=== PATIENT | female | born 1930 | race Caucasian/White ===

== ENCOUNTER 2016-12-22 20:32 | Inpatient (IN) | payer MEDICARE, BC ==
[~2016-12-22] VITALS: Ht 167.6 cm; Wt 74.8 kg
[~2016-12-22 20:32] MED LIST: BAYER CHEWABLE81 MG PO; COZAAR100 MG PO; DUONEB 2.5-0.5 M3 ML UPD; ERYTHROMYCIN250 M1 PO; FLAGYL500 MG PO; GAS-X80 MG PO; HYDROCHLOROTHIA25 MG PO; K-DUR20 MEQ PO; LASIX40 MG PO; LEXAPRO10 MG PO; LOPRESSOR50 MG PO; MUCINEX600 MG PO; NORCO 10/325 TA1 TA1 PO; POTASSIUM99 M1 PO; PREDNISONE20 MG PO; ZITHROMAX250 MG PO
[2016-12-22 22:14] LABS: BASOPHILS 0.5 % (0.0-2.0); EOSINOPHILS 2.6 % (0-7); HEMATOCRIT 37.7 % (36.0-48.0); HEMOGLOBIN 12.2 g/dL (12-16); IMMATURE GRANULOCYTES 0.1 % (0-5); LYMPHOCYTES 11.2 % (15-50); MCH 28.7 pg (26.0-34.0); MCHC 32.4 g/dL (31.0-37.0); MCV 88.7 fL (80.0-100.0); MEAN PLATELET VOLUME 10.9 fL (7.4-10.4); MONOCYTES 10.8 % (2-11); NEUTROPHILS 74.8 % (40-80); PLATELET COUNT 201 10x3/uL (130-400); RBC 4.25 10x6/uL (4.00-5.40); RDW 14.1 % (11.5-14.5); WBC 8.1 10x3/uL (4.8-10.8)
[2016-12-22 22:32] LABS: ALBUMIN 3.7 g/dL (3.4-5.0); ANION GAP 11.6 mmol/L (8-16); BILIRUBIN - TOTAL 0.33 mg/dL (0.2-1.3); CALCIUM 8.3 mg/dL (8.5-10.1); CARBON DIOXIDE 27.5 mmol/L (21.0-32.0); CREATININE - SERUM 2.1 mg/dL (0.6-1.3); POTASSIUM - SERUM 4.1 mmol/L (3.5-5.1); PROTEIN - SERUM 7.3 g/dL (6.4-8.2)
[2016-12-22 22:34] LABS: APPEARANCE TURBID (CLEAR); BACTERIA MANY /hpf (NONE SEEN); BILIRUBIN NEGATIVE (NEGATIVE); COLOR YELLOW (YELLOW); EPITHELIAL CELLS 0-5 /hpf (0-5); GLUCOSE NEGATIVE (NEGATIVE); KETONE NEGATIVE (NEGATIVE); LEUKOCYTE ESTERASE 2+ (NEGATIVE); NITRITE NEGATIVE (NEGATIVE); PROTEIN 2+ mg/dL (NEGATIVE); RED CELLS - URINE 25-50 /hpf (0-5); UROBILINOGEN NORMAL (NORMAL); WHITE CELLS - URINE >50 /hpf (0-5)
[2016-12-23 01:19] LABS: TROPONIN-I 0.033 ng/mL (0.000-0.060)
--- NOTE | 2016-12-23 01:59 | NUR ---
RECEIVED TO ROOM 213 ALERT AND ORIENTED 86 Y/O FEMALE SEEN BY DR HUERTA WITH A DX OF KIDNEY STONES VIA STRETCHER FROM ER. ASSIST OVER TO BED W/O DIFF. ORIENTATION TO UNIT ROOM BED, BATHROOM, C/L, TV, GIVEN WITH UNDERSTANDING VERBALIZED. HOB UP SR UP X2, C/L IN REACH,, FIELD OPERATOR DILAUDID PER ORDERS, WHITNEY WELL. CONTINUE TO MONITOR. NPO
[2016-12-23 04:00] VITALS: BP 213/93
[2016-12-23 05:01] VITALS: BP 213/93; BMI 26.7
--- NOTE | 2016-12-23 07:58 | NUR ---
HELPED PT WITH TOILETING. DENIES OTHER NEEDS WILL CONT TO MONITOR.
[2016-12-23 08:32] VITALS: BP 179/76
[2016-12-23 12:35] VITALS: BP 106/67
--- NOTE | 2016-12-23 12:46 | NUR ---
PT ANCEF AND DILAUDID STARS ANALYTICAL LEAD ARENT COMPATIBLE. TRIED TO SITE PT ANOTHER PIV. X5 STICKS, NO SUCCESS. CALLED ANTONELLA VASCULAR ACCESS NURSE TO COME TRY, ON HER WAY
--- NOTE | 2016-12-23 13:01 | NUR ---
IV ACCESS-22 GAUGE INSERTED IN LEFT HAND FOR ACCESS ANTONELLA TONEY RN
--- NOTE | 2016-12-23 13:11 | NUR ---
ANTONELLA WAS ABLE TO GET IV ACCESS. STARTED IV ABX TO LEFT HAND NEW IV SITE. DILAUDID SALES MERCHANDISING SPECIALIST AND FLUIDS GOING TO R AC. PT GOING FOR CYSTOSCOPY THIS EVENING PER DR LOMELI. CONSENTS ARE SIGNED AND ON THE CHART. PT CALLED DAUGHTER WHILE I WAS IN THE ROOM AND TOLD HER SHE WAS GOING TO SURGERY. WILL CONT TO MONITOR
[2016-12-23 13:46] VITALS: Ht 167.6 cm; Wt 74.8 kg
[2016-12-23 15:55] VITALS: BP 127/76
--- NOTE | 2016-12-23 18:17 | NUR ---
SURGERY CALLED TO PREOP PT EARLIER. PT PREOPED AND READY TO GO. PT DENIES NEEDS AT THIS TIME.
--- NOTE | 2016-12-23 20:40 | NUR ---
BACK FROM SURGERY VIA BED, ALERT, ORIENTED VOICES NO C/O PAIN OR DISCOMFORT AT THIS TIME. HOB UP, SR UP X2, C/L IN REACH. VSS.
[2016-12-23 21:37] VITALS: BP 162/60
--- NOTE | 2016-12-24 03:17 | NUR ---
EYES CLOSED, RESP UNL AT THIS TIME.DOES HAVE BOX ALARM ATTACHED AND WORKING CHECKING FREQ. FOR NEEDS. NO S/S OF ACUTE DISTRESS NOTED AT THIS TIME. C/L IN REACH. CONTINUE TO MONITOR.
[2016-12-24 05:37] LABS: BASOPHILS 0.5 % (0.0-2.0); EOSINOPHILS 0.6 % (0-7); HEMATOCRIT 35.2 % (36.0-48.0); IMMATURE GRANULOCYTES 0.5 % (0-5); LYMPHOCYTES 7.7 % (15-50); MCH 28.9 pg (26.0-34.0); MCHC 31.3 g/dL (31.0-37.0); MEAN PLATELET VOLUME 10.8 fL (7.4-10.4); MONOCYTES 7.4 % (2-11); NEUTROPHILS 83.3 % (40-80); PLATELET COUNT 173 10x3/uL (130-400); RBC 3.81 10x6/uL (4.00-5.40); RDW 14.8 % (11.5-14.5); WBC 8.8 10x3/uL (4.8-10.8)
[2016-12-24 05:41] LABS: MCV 92.4 fL (80.0-100.0)
[2016-12-24 05:54] VITALS: BP 171/71
[2016-12-24 06:01] LABS: ALBUMIN 3.2 g/dL (3.4-5.0); ANION GAP 10.6 mmol/L (8-16); BILIRUBIN - TOTAL 0.4 mg/dL (0.2-1.3); CALCIUM 8.2 mg/dL (8.5-10.1); CARBON DIOXIDE 24.8 mmol/L (21.0-32.0); CREATININE - SERUM 1.9 mg/dL (0.6-1.3); POTASSIUM - SERUM 4.4 mmol/L (3.5-5.1); PROTEIN - SERUM 6.4 g/dL (6.4-8.2)
[2016-12-24 06:02] VITALS: BP 166/78
--- NOTE | 2016-12-24 07:20 | NUR ---
PT SITTING UP IN BED SLEEPING ARROUSES EASILY. NO S/S DISTRESS NOTED WILL CONT TO MONITOR.
[2016-12-24 08:00] VITALS: BP 183/67
[2016-12-24 12:00] VITALS: BP 180/80
--- NOTE | 2016-12-24 15:18 | OP ---
PATIENT NAME: FIDE TORRES MEDICAL RECORD: [id number] :32 LOCATION:D.M2 D.2133 ADMISSION DATE:12/23/16 SURGEON: KOTA LOMELI MD DATE OF OPERATION: 12/23/2016 SURGEON: Kota Lomeli MD. ANESTHESIA: MAC by Dr. Umanzor. PREOPERATIVE DIAGNOSES: Bilateral hydronephrosis, urinary tract infection, infected ureteral stents times 3. 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 PROCEDURES: Cystoscopy, bilateral ureteral stent removal. Two stents were removed from the left kidney, one stent from the right. Retrograde pyelogram on the right side. Right ureteral stent insertion, 5-Danish 24 cm without string attached. Specimen ureteral stents times 3. ESTIMATED BLOOD LOSS: None. CLINICAL HISTORY: This is an 86-year-old female, who was admitted for flank pain. She is not a very good historian. She does not remember ever having had ureteral stents inserted and for what indication they may have been inserted. She comes with an acute renal failure with a creatinine of 2.0. CT scan shows three ureteral stents in good position. There was a very atrophic left kidney with two ureteral stents in there due to a duplicated ureters. On the right side, there is one ureteral stent in good position, but the right kidney has hydroureteronephrosis down to about the mid ureteral level. Her urine shows signs of urinary tract infection. Urine culture has been sent. I started her empirically on Ancef 1 gram IV q.12 hours. The dosing is based on her elevated creatinine level. She will need to get these old and infected and obstructed ureteral stents removed. On the left side, I am not going to replace anything as the left kidney was basically . On the right side, which seems to be her solitary functioning kidney, we will replace the right ureteral stent. Due to the expected brevity of this case, we used MAC. Since the patient has already been given IV Ancef on the floor, we did not need to give her any further antibiotics here in the OR. DESCRIPTION OF PROCEDURE: The patient was given IV sedation. She was then placed in dorsal lithotomy position and prepped and draped. Preoperative fluoroscopy revealed the [address] The ureteral stent on the left side did crossover as expected, so that the upper moiety of the left kidney had the stent opening out on to the lower ureteral orifice on the left side. The lower moiety of the left kidney opens up on the upper ureteral orifice on the left side. This is consistent with a Weigert-Yang law. We placed a 21-Danish cystoscope. The stents were identified. I pulled out the stent from the left lower ureteral orifice first. Fluoroscopy was done while this was being performed and this confirmed that the stent was coming out of the left upper pole moiety of the kidney. The stent was entirely removed. Then, the stent coming out of the upper ureteral orifice was removed and this under fluoroscopy, revealed that it was coming out of the lower moiety of the left kidney. Then, the stent from the right side was removed entirely. All 3 stents were taken at the end of the case and sent to pathology for identification only. OPERATIVE REPORT [id number] FIDE TORRES A 5-Danish open-ended ureteral catheter was then placed into the right ureteral orifice. Retrograde pyelogram was performed. The distal ureter is of normal caliber. At about the L3-L4 interspace ____ incredibly to quite prominent hydroureteronephrosis with tortuosity of the proximal ureter. They placed our sensor wire through the lumen of the open-ended ureteral catheter and guided into the renal pelvis. We then removed the open-ended ureteral catheter and left the guidewire in place. Over the wire, we inserted the 5-Danish x 24 cm ureteral stent. Once the stent was in correct position, we slowly withdrew the wire to allow the proximal end to coil within the renal pelvis. The wire was then entirely removed. The distal end was pushed into the bladder using a pusher. The bladder was then emptied through the cystoscope. The patient was brought to the recovery room. TRANSINT:[id number] Voice Confirmation ID: [id number] DOCUMENT ID: [id number] KOTA LOMELI MD at 1518 CC: [id number] DICTATION DATE: 12/23/161946 IMPORT COORDINATOR: 12/24/166 [facility] IN [facility] [address] [id number]
[2016-12-24 16:00] VITALS: BP 192/81
--- NOTE | 2016-12-24 16:55 | NUR ---
DC PT DILAUDID MOUNTER PER DR HUERTA ORDER. EXPLAINED TO PT. TOLD PT SHE HAS ORAL PAIN MEDS IF NEEDED PT VERBALIZES UNDERSTANDING.
--- NOTE | 2016-12-24 18:27 | NUR ---
PT SITTING UP IN BED TALKING ON THE PHONE DENIES NEEDS WILL CONT TO MONITOR
[2016-12-24 20:00] VITALS: BP 152/61
--- NOTE | 2016-12-24 20:09 | NUR ---
PT RESTING IN BED, ASSISTED UP TO USE BEDSIDE COMMODE, THEN BACK TO BED WITH NO RESULTS. SALINE LOCK TO LEFT HAND. NS @ 100 TO RIGHT A/C. O2 @ 2L/NC WITH SLIGHT SOB AFTER EXERTING HERSELF. BED ALARM IN PLACE. CPOC.
[2016-12-25] VITALS: BP 194/73
[2016-12-25 04:00] VITALS: BP 211/81
--- NOTE | 2016-12-25 04:05 | NUR ---
SHIFT SUMMARY: PT STARTED SHIFT BEING VERY RESISTANT TO CALLING FOR ASSISTANCE AND WOULD BE FOUND OUT OF BED/NAKED WITH BOX BED ALARM STILL ON THE BED AND CONNECTED TO THE GOWN SHE HAD REMOVED. STAFF ORIENTED PT TO SAFETY AND TRIED MULTIPLE TIMES TO GET HER TO USE HER CALL LIGHT. SHE WOULD SOMETIMES COME ACROSS CONFUSED, SAYING SHE HAD USED HER CALL LIGHT AND INDICATING HER PHONE. DECISION MADE TO ALSO PLACE PT ON A BED ALARM MAT. SHE HAS BEEN CAUGHT SEVERAL TIMES GETTING UP TO VOID BY THE ALARM GOING OFF. PT MANAGED TO PULL OUT ONE IV IN HER LEFT HAND ON ONE OF HER TIMES GETTING UP AND DECISION WAS MADE TO LEAVE IVF OFF SINCE PT WAS CONTINUING TO GET UP AND DID NOT WANT TO LOSE REMAINING IV IN PT'S RIGHT A/C. AFTER REDIRECTING PT FOR HOURS, SHE FINALLY SLEPT FOR A SHORT WHILE AND WAS ABLE TO HANG HER SCHEDULED ABT. AFTER IV ABT COMPLETED, PT WAS BACK UP, SETTING OFF BED ALARMS X 2 AND TRYING TO GO TO BATHROOM UNASSISTED. SALINE LOCKED IV AGAIN TO KEEP HER FROM PULLING IT OUT. PT IS NOW RESTING IN BED. SHE DOES TURN OVER FREQUENTLY AND SET OFF ALARM MAT, BUT HAS BEEN IN THE BED WHEN STAFF ARRIVE IN ROOM AND WILL TELL STAFF "I JUST TURNED OVER, THAT IS ALL". CONTINUE TO MONITOR, FALL PRECAUTIONS REMAIN IN PLACE. PT HAS BEEN VOIDING FREQUENT, SMALL AMOUNTS THAT ARE MORE YELLOW NOW THAN BEGINNING OF SHIFT WHEN HER URINE HAD SOME SMALL AMOUNTS OF OLD BLOOD/BROWN COLOR IN IT.
[2016-12-25 05:58] LABS: BASOPHILS 0.4 % (0.0-2.0); EOSINOPHILS 0.6 % (0-7); HEMATOCRIT 34.5 % (36.0-48.0); HEMOGLOBIN 10.7 g/dL (12-16); IMMATURE GRANULOCYTES 0.3 % (0-5); MCH 28.3 pg (26.0-34.0); MCV 91.3 fL (80.0-100.0); MEAN PLATELET VOLUME 11.2 fL (7.4-10.4); MONOCYTES 10.3 % (2-11); NEUTROPHILS 82.4 % (40-80); PLATELET COUNT 175 10x3/uL (130-400); RBC 3.78 10x6/uL (4.00-5.40); RDW 14.6 % (11.5-14.5); WBC 9.4 10x3/uL (4.8-10.8)
[2016-12-25 06:17] LABS: ALBUMIN 3.1 g/dL (3.4-5.0); BILIRUBIN - TOTAL 0.6 mg/dL (0.2-1.3); CALCIUM 8.2 mg/dL (8.5-10.1); CARBON DIOXIDE 21.1 mmol/L (21.0-32.0); CREATININE - SERUM 1.8 mg/dL (0.6-1.3); POTASSIUM - SERUM 4.1 mmol/L (3.5-5.1); PROTEIN - SERUM 6.3 g/dL (6.4-8.2)
[2016-12-25 08:00] VITALS: BP 201/74
[2016-12-25 12:00] VITALS: BP 194/75
[2016-12-25 16:09] VITALS: BP 191/86
[2016-12-25 17:33] LABS: APPEARANCE CLEAR (CLEAR); BILIRUBIN NEGATIVE (NEGATIVE); COLOR YELLOW (YELLOW); GLUCOSE NEGATIVE (NEGATIVE); KETONE SMALL mg/dL (NEGATIVE); LEUKOCYTE ESTERASE 1+ (NEGATIVE); NITRITE NEGATIVE (NEGATIVE); PROTEIN 1+ mg/dL (NEGATIVE); SPECIFIC GRAVITY 1.015 (1.005-1.020); UROBILINOGEN NORMAL (NORMAL)
[2016-12-25 17:35] LABS: EPITHELIAL CELLS 0-5 /hpf (0-5); RED CELLS - URINE 0-5 /hpf (0-5)
[2016-12-25 17:38] LABS: BACTERIA FEW /hpf (NONE SEEN)
[2016-12-25 20:00] VITALS: BP 179/73
--- NOTE | 2016-12-25 20:45 | NUR ---
PT HAS BEEN RESTING IN BED WITH EYES CLOSED. ROUSES TO CALLING OF HER NAME. ASSISTED UP TO WHEELCHAIR TO GO TO RADIOLOGY FOR CT OF HEAD.
--- NOTE | 2016-12-25 21:00 | NUR ---
RETURNED FROM CT AND BACK TO BED. ALARM MAT IN PLACE, WELL ALARM BED. PT BACK TO SLEEP.
--- NOTE | 2016-12-25 23:30 | NUR ---
IVF NS @ 100ML/HR INFUSING TO RIGHT A/C. PT SAT UP ON SIDE OF BED, ALARM WENT OFF AND PT ACTUALLY STAYED ON SIDE OF BED UNTIL STAFF CAME AND ASSISTED HER TO BATHROOM. SHE VOIDED. URINE IS YELLOW. ASSISTED BACK TO BED. WEARING DEPENDS. OFFERED PT PAIN MED AND SHE TOOK A NORCO TO HELP HER REST AND FOR PAIN SHE HAS BEEN HAVING IN HER ABDOMEN. FALL PRECAUTIONS IN PLACE. ABLE TO BE SEEN FROM NURSES STATION.
[2016-12-26] VITALS: BP 137/69
--- NOTE | 2016-12-26 02:59 | NUR ---
IV TO RIGHT A/C LEAKING. REMOVED. DIP BRAZIER IN ROOM AND PROVIDING BATH TO PT. WILL RESITE IV WHEN BATH/ADLS ARE COMPLETED.
--- NOTE | 2016-12-26 05:05 | NUR ---
RESITED 22G TO RFA BY FEDERICO DAVENPORT. IVF CONTINUED.
[2016-12-26 06:55] LABS: BASOPHILS 0.4 % (0.0-2.0); EOSINOPHILS 0.5 % (0-7); HEMATOCRIT 33.3 % (36.0-48.0); HEMOGLOBIN 10.5 g/dL (12-16); IMMATURE GRANULOCYTES 0.4 % (0-5); LYMPHOCYTES 4.2 % (15-50); MCH 28.7 pg (26.0-34.0); MCHC 31.5 g/dL (31.0-37.0); MONOCYTES 10.4 % (2-11); NEUTROPHILS 84.1 % (40-80); PLATELET COUNT 160 10x3/uL (130-400); RBC 3.66 10x6/uL (4.00-5.40); RDW 14.7 % (11.5-14.5); WBC 9.3 10x3/uL (4.8-10.8)
[2016-12-26 07:39] LABS: ALBUMIN 3.2 g/dL (3.4-5.0); ANION GAP 16.1 mmol/L (8-16); BILIRUBIN - TOTAL 0.47 mg/dL (0.2-1.3); CALCIUM 7.8 mg/dL (8.5-10.1); CREATININE - SERUM 1.7 mg/dL (0.6-1.3); POTASSIUM - SERUM 4.1 mmol/L (3.5-5.1); PROTEIN - SERUM 6.1 g/dL (6.4-8.2)
[2016-12-26 09:09] VITALS: BP 187/98
--- NOTE | 2016-12-26 09:27 | NUR ---
MORNING MEDICATIONS PASSED. PT STILL CONFUSED BUT PLEASANTLY AND REORIENTS WELL. PT SITTING UP IN BED EATING BREAKFAST. NS INFUSING @100ML/HR VIA R.WRIST PIV ACCESS. DRSG CDI AND SWAB CAPS IN USE. PT HAS NC @3L IN PLACE AND BREATHING WITH RR SLIGHTLY LABORED. PT DENIES ANY CURRENT PAIN OR NEEDS. CL IN REACH, BED IN LOWEST, SIDE RAILS X2. WILL CPOC.
[2016-12-26 12:29] VITALS: BP 152/52
--- NOTE | 2016-12-26 13:21 | NUR ---
Nutrition Follow Up: Chart reviewed. Pt with confusion at this time. Pt is eating 22% meal avg on a diabetic diet. No BM since admit. Labs noted. Meds noted including NS @ 100 ml/hr, Humulin. Pt with poor po intake at this time. Will change diet to regular to encourage po intake. RD following.
--- NOTE | 2016-12-26 16:07 | NUR ---
* Is the patient Alert and Oriented? Yes 0 * How many steps to enter\exit or inside your home? 2 0 * PCP Dr. Vides 0 * Pharmacy [facility] 0 * Preadmission Environment Home with Family 0 * ADLs Independent 0 * Equipment Nebulizer Oxygen 0 * List name and contact numbers for known caregivers / representatives who currently or will assist patient after discharge: Minh Gould [phone] Daughter Beto Broderick [phone] * Additional services required to return to the preadmission environment? No 0 * Can the patient safely return to the preadmission environment? Yes 0 * Has this patient been hospitalized within the prior 30 days at any hospital? No 12/26/2016 16:07 DCP: Discharge Planning Patient Name: FIDE TORRES Admission Status: ER Accout number: [id number] Admission Date: 12-23-2016 : 1932 Admission Diagnosis:UNSPECIFIED HYDRONEPHROSIS Attending: XIN Current LOS: 3 Anticipated DC Date: 12-27-2016 Planned Disposition: Home Primary Insurance: MEDICARE A & B Discharge Planning Comments: CM met with patient to assess dc plans/needs. Patient states she lives alone, but her son & daughter in law live in a travel trailer in her yard. She states she is independent with all ADL's & IADL's, but family is available to help with any needs. She is currently on home O2 @ 2L & uses a nebulizer regularly. She states she has had home health in the past but unable to recall which agency. At dc, she will return home. Offered home health services - she is not interested at this time. CM will follow. Inventory Associate: Lynda Mary
[2016-12-26 20:00] VITALS: BP 191/75
[2016-12-27] VITALS: BP 181/78
[2016-12-27 04:46] LABS: BASOPHILS 0.2 % (0.0-2.0); EOSINOPHILS 0 % (0-7); HEMOGLOBIN 9.9 g/dL (12-16); IMMATURE GRANULOCYTES 0.6 % (0-5); LYMPHOCYTES 1.8 % (15-50); MCHC 31.9 g/dL (31.0-37.0); MCV 90.9 fL (80.0-100.0); MEAN PLATELET VOLUME 10.9 fL (7.4-10.4); MONOCYTES 3.4 % (2-11); PLATELET COUNT 155 10x3/uL (130-400); RBC 3.41 10x6/uL (4.00-5.40); RDW 14.7 % (11.5-14.5); WBC 8.5 10x3/uL (4.8-10.8)
[2016-12-27 04:56] LABS: ALBUMIN 2.9 g/dL (3.4-5.0); ANION GAP 14.8 mmol/L (8-16); BILIRUBIN - TOTAL 0.37 mg/dL (0.2-1.3); CALCIUM 7.6 mg/dL (8.5-10.1); CARBON DIOXIDE 19.7 mmol/L (21.0-32.0); CREATININE - SERUM 1.8 mg/dL (0.6-1.3); POTASSIUM - SERUM 3.5 mmol/L (3.5-5.1); PROTEIN - SERUM 6.3 g/dL (6.4-8.2)
[2016-12-27 08:25] VITALS: BP 176/85
[2016-12-27 12:28] VITALS: BP 152/90
[2016-12-27 15:01] VITALS: BP 178/71
[2016-12-27 19:00] VITALS: BP 194/81
--- NOTE | 2016-12-27 19:45 | NUR ---
PT AWAKE, ALERT, ORIENTED, SITTING ON SIDE OF BED. PT DENIES ANY ACUTE NEEDS AT THIS TIME. WILL MONITOR CLOSELY.
[2016-12-28] VITALS: BP 167/76
[2016-12-28 04:00] VITALS: BP 157/77
--- NOTE | 2016-12-28 05:52 | NUR ---
PT LYING IN BED, EYES CLOSED, RESPIRATIONS EVEN AND UNLABORED. PT EASILY ROUSABLE TO VERBAL STIMULI. CONTINUE TO MONITOR CLOSELY.
[2016-12-28 06:14] LABS: BASOPHILS 0 % (0.0-2.0); EOSINOPHILS 0 % (0-7); HEMATOCRIT 31.2 % (36.0-48.0); HEMOGLOBIN 9.9 g/dL (12-16); IMMATURE GRANULOCYTES 0.8 % (0-5); LYMPHOCYTES 1.6 % (15-50); MCH 28.8 pg (26.0-34.0); MCHC 31.7 g/dL (31.0-37.0); MCV 90.7 fL (80.0-100.0); MEAN PLATELET VOLUME 10.9 fL (7.4-10.4); MONOCYTES 5.5 % (2-11); NEUTROPHILS 92.1 % (40-80); PLATELET COUNT 181 10x3/uL (130-400); RBC 3.44 10x6/uL (4.00-5.40); RDW 14.7 % (11.5-14.5)
[2016-12-28 06:44] LABS: ALBUMIN 2.8 g/dL (3.4-5.0); ANION GAP 15.5 mmol/L (8-16); BILIRUBIN - TOTAL 0.3 mg/dL (0.2-1.3); CALCIUM 7.8 mg/dL (8.5-10.1); CARBON DIOXIDE 19.9 mmol/L (21.0-32.0); CREATININE - SERUM 1.7 mg/dL (0.6-1.3); POTASSIUM - SERUM 3.4 mmol/L (3.5-5.1)
--- NOTE | 2016-12-28 07:00 | NUR ---
RECEIVED REPORT. ASSUMED CARE OF PATIENT. CALL LIGHT WITHIN REACH. COMPLETING NEBULIZER DURING REPORT. RESP EVEN AND UNLAOBRED. NO DISTRESS.
[2016-12-28 08:26] VITALS: BP 187/82
[2016-12-28] MEDS ORDERED: NORVASC10 MG PO (10:07)
--- NOTE | 2016-12-28 11:12 | NUR ---
DC ORDER RECEIVED WITH HOME HEALTH ORDER. Cm met with alexane to discuss HH order. KITA discussed, patient stated she has had HH in the past but cant remember who with. KITA given with list of agencies. She did not have a preference. Cm will fax referral to [facility]. Patient signed [facility] form for [facility]. Pateint stated she has O2 and nebulizer at home. She deneid further dc needs. Barby Romo RN, [facility] [phone]
--- NOTE | 2016-12-28 11:23 | NUR ---
RESTING IN BED NO DISTRESS. ELOISA, CASE MANAGEMENT WILL HELP SET UP [facility] FOR PATIENT. PATIENT DENIES NEEDS AT THIS TIME.
[2016-12-28] MEDS ORDERED: PREDNISONE10 MG PO (11:54)
--- NOTE | 2016-12-28 12:24 | NUR ---
LISHA spoke to ROSTR/ [employer] [facility] and faxed referral to [phone]. Narendra to admit patient on Friday or Friday. Barby Romo RN, [facility] [phone]
--- NOTE | 2016-12-28 14:20 | NUR ---
22 GAUGE IV REMOVED FROM RIGHT WRIST. PATIENT IS DISCHARGING TO HOME. CATHETER TIP INTACT. NO BLEEDING FROM SITE. 2X2 GAUZE APPLIED AND SECURED WITH TAPE. NO DISTRESS. PATIENT COMPLAINS OF BEING SLEEPY. STATES SHE ATE A HUGE LUNCH, TOO MUCH, AND NOW SHE JUST WANTS TO REST. ENCOURAGED PATIENT TO REST WHILE SHE CAN. NO DISTRESS. CALL LIGHT WITHIN REACH.
--- NOTE | 2016-12-28 14:26 | NUR ---
FSBS 140. NO INSULIN PROVIDED PER SLIDING SCALE.
--- NOTE | 2016-12-28 17:05 | NUR ---
1645 FAMILY AT BEDSIDE. DISCHARGE INSTRUCTIONS PROVIDED TO PATIENT AND FAMILY. VERBALIZED ALL INSTRUCTIONS PROVIDED. 1655 PATIENT LEFT UNIT VIA WHEELCHAIR WITH ALL PERSONAL BELONGINGS. PATIENT DISCHARGE TO HOME WITH FAMILY. NO DISTRESS UPON LEAVING UNIT.
== END 2016-12-28 17:00 | disposition home health service (06) | DRG 699 ==
LOC: D.ER 20:32 → OBSVTIME 12-23 01:02 → D.M2 12-23 01:02
PROVIDERS: Surgery; Urology; ADMIT Family Medicine
PROC: BT141ZZ Fluoroscopy of Kidneys, Ureters and Bladder using Low Osmolar Contrast (ICD-10-PCS; 2016-12-23)
PROC: 0TP98DZ Removal of Intraluminal Device from Ureter, Via Natural or Artificial Opening Endoscopic (ICD-10-PCS; principal; 2016-12-23 17:00)
PROC: 0T768DZ Dilation of Right Ureter with Intraluminal Device, Via Natural or Artificial Opening Endoscopic (ICD-10-PCS; 2016-12-23 17:00)
DX: T83.592A Infection and inflammatory reaction due to indwelling ureteral stent, initial encounter (principal); N13.30 Unspecified hydronephrosis; J96.10 Chronic respiratory failure, unspecified whether with hypoxia or hypercapnia; N17.9 Acute kidney failure, unspecified; N39.0 Urinary tract infection, site not specified; I25.10 Atherosclerotic heart disease of native coronary artery without angina pectoris; J44.9 Chronic obstructive pulmonary disease, unspecified; E11.22 Type 2 diabetes mellitus with diabetic chronic kidney disease; I12.9 Hypertensive chronic kidney disease with stage 1 through stage 4 chronic kidney disease, or unspecified chronic kidney disease; N18.9 Chronic kidney disease, unspecified; I71.4 Abdominal aortic aneurysm, without rupture; Y83.8 Other surgical procedures as the cause of abnormal reaction of the patient, or of later complication, without mention of misadventure at the time of the procedure; R41.0 Disorientation, unspecified; D63.8 Anemia in other chronic diseases classified elsewhere; Q62.5 Duplication of ureter

== ENCOUNTER 2017-03-06 05:25 | Day surgery (SDC) | payer MEDICARE, BC ==
[~2017-03-06] VITALS: Ht 167.6 cm; Wt 72.6 kg
[~2017-03-06 05:25] MED LIST changes: +NORVASC10 MG PO; +PREDNISONE10 MG PO
[2017-03-06 06:08] LABS: BASOPHILS 1.4 % (0-2); HEMATOCRIT 36.6 % (36.0-48.0); HEMOGLOBIN 12.1 g/dL (12-16); IMMATURE GRANULOCYTES 0.3 % (0-5); LYMPHOCYTES 25.7 % (15-50); MCH 29.2 pg (26.0-34.0); MCHC 33.1 g/dL (31.0-37.0); MCV 88.4 fL (80.0-100.0); MEAN PLATELET VOLUME 11.2 fL (7.4-10.4); MONOCYTES 11.7 % (2-11); NEUTROPHILS 53.9 % (40-80); PLATELET COUNT 196 10x3/uL (130-400); RBC 4.14 10x6/uL (4.00-5.40); RDW 12.9 % (11.5-14.5)
[2017-03-06] MEDS ORDERED: LEXAPRO10 MG PO (06:28)
[2017-03-06] MEDS ORDERED: BAYER CHEWABLE81 MG PO (06:29)
[2017-03-06 06:32] VITALS: BP 144/69; Ht 167.6 cm; Wt 72.6 kg
[2017-03-06 06:33] LABS: ANION GAP 12.9 mmol/L (8-16); CALCIUM 8.8 mg/dL (8.5-10.1); CARBON DIOXIDE 27.9 mmol/L (21.0-32.0); CREATININE - SERUM 1.9 mg/dL (0.6-1.3); POTASSIUM - SERUM 3.8 mmol/L (3.5-5.1)
--- NOTE | 2017-03-06 10:45 | NUR ---
1015--MOORE CATHETER CARE AND DRAINAGE TEACHING COMPLETE, PT AND HER DAUGHTER VERBALIZE UNDERSTANDING. AYAN DAVENPORT
--- NOTE | 2017-03-06 10:47 | NUR ---
1030--IV DC'D, PT UP TO DRESS AT THIS TIME. AYAN DAVENPORT 1040--DISCHARGE INSTRUCTIONS GIVEN, PT VERBALIZES UNDERSTANDING. PT OFF UNIT VIA WC. AYAN DAVENPORT
--- NOTE | 2017-03-07 09:34 | OP ---
PATIENT NAME: FIDE TORRES MEDICAL RECORD: [id number] :32 LOCATION:TORIE ADMISSION DATE: SURGEON: KOTA LOMELI MD DATE OF OPERATION: 03/06/2017 SURGEON: Kota Lomeli M.D. ANESTHESIA: General anesthesia by Dr. Trejo. PREOPERATIVE DIAGNOSIS: Right mid ureteral stricture. FINDINGS: Right mid ureteral stricture at L4-L5 interspace with hydroureteronephrosis proximal to it. Extravasation of contrast after Acucise endopyelotomy. PROCEDURES: Cystoscopy, right retrograde pyelogram, right Acucise endopyelotomy, right ureteral stent, 7-10 Luxembourger insertion. SPECIMENS: Old right ureteral stent. ESTIMATED BLOOD LOSS: None. CLINICAL HISTORY: The patient is an 86-year-old female who has renal failure. She has an atrophic left kidney. The right kidney is the only solitary functioning kidney and she has significant obstruction of the outflow of the right kidney due to a stricture in the mid ureter. The cause of the stricture is not known. Currently, she has been treated with ureteral stent insertion and routine stent changes. She would like to have this treated to relieve the stricture. We have chosen to approach this with an Acucise endopyelotomy. She was given Ancef 1 g IV integration software developer to the OR. PROCEDURE IN DETAIL: The patient was given induction of general anesthesia. She was placed in the dorsal lithotomy position and prepped and draped. A 21-Luxembourger cystoscope with 30-degree lens was used for visualization. She has single ureteral orifices on each side. No bladder tumors were seen. Grasping forceps were used and the old right ureteral stent was entirely removed. We then inserted a 5-Luxembourger open-ended ureteral catheter and performed a right retrograde pyelogram. This was performed using diluted contrast 1:1 with saline. Here, we saw the focal stricture at the L4-L5 interspace. Proximal to this was quite prominent hydroureteronephrosis. We placed our guidewire up into the renal pelvis. This is a Super Stiff wire. The open-ended ureteral catheter was entirely removed. We then removed the cystoscope and re-placed it into the bladder beside the wire. Over the wire, we inserted the Acucise endopyelotomy dilation balloon. We made sure that the cutting wire on the balloon faced laterally and slightly anteriorly at about the 10 o'clock position. The purpose was to avoid hitting any iliac vessels, which the ureter may be crossing over at this point. We positioned the Acucise balloon, so that the midpoint of the balloon completely straddled the focal point of stricture. The position was verified by injecting contrast through the Acucise catheter to perform a retrograde pyelogram to allow us to verify the stricture location. Once the stricture location was identified and the position of the balloon was accurately placed, we then inflated the balloon with 2.5 cc of dilute contrast and at the same time, applied 100 zhong of pure cutting current into the Acucise cutting wire for 5 seconds. We could immediately see the contrast in the retrograde pyelogram extravasating out through the ureteral cut. At this point, the OPERATIVE REPORT [id number] FIDE TORRES balloon was left inflated and maintained for 10 minutes to provide tamponade. At the end of the 10 minutes, the balloon was deflated and the Acucise catheter was completely removed. We did not observe any bleeding from the ureteral orifice to suggest that we had caused any venous or arterial injury to the iliacs. We then placed the Acucise catheter, which starts off at 7-Luxembourger on the narrow and tapers out to 10-Luxembourger on the wide end. We kept the wide end inferiorly. This was pushed up the wire under fluoroscopic guidance and was in correct position. The wire was entirely withdrawn. The distal end of the stent was pushed into the bladder using the scope. We drained the bladder through the cystoscope. A 16-Luxembourger Payne catheter was then inserted into the bladder. The Payne catheter balloon was inflated with 10 cc of sterile water. This was put to bag drainage. The patient was awakened and brought to the recovery room. She will see me early next week to have the Payne catheter removed. We will remove the endopyelotomy stent at 6 weeks. At 12 weeks post-procedure, we will perform another Lasix renal scan to verify if the obstruction has been resolved. TRANSINT:[id number] Voice Confirmation ID: [id number] DOCUMENT ID: [id number] KOTA LOMELI MD at 0934 CC: [id number] DICTATION DATE: 03/06/17 0848 TRIAL JUSTICE: 03/06/17 1352 [facility] 03/06/17 [facility] [address] [place] [address]
== END 2017-03-06 10:40 | disposition home or self-care (01) ==
LOC: D.OPS 05:25 → D.PAN 07:30 → D.OPS 10:40
PROVIDERS: Anesthesiology
DX: N13.1 Hydronephrosis with ureteral stricture, not elsewhere classified (principal); N26.1 Atrophy of kidney (terminal); N19 Unspecified kidney failure; Z01.812 Encounter for preprocedural laboratory examination

== ENCOUNTER → 2017-06-05 14:00 | Outpatient (CLI) | payer MEDICARE, BC ==
[2017-03-06 06:32] VITALS: BMI 25.8
== END | disposition home or self-care (01) ==
LOC: D.NM 05-29 09:30
DX: N35.9 Urethral stricture, unspecified (principal)

== ENCOUNTER 2018-02-25 02:26 | Inpatient (IN) | payer MEDICARE, BC ==
[~2018-02-25] VITALS: Ht 167.6 cm; Wt 73.8 kg
--- NOTE | ~2018-02-25 | OP ---
PATIENT NAME: FIDE TORRES MEDICAL RECORD: [id number] :32 LOCATION:D. D.2109 ADMISSION DATE:02/25/18 SURGEON: KOTA LOMELI MD DATE OF OPERATION: 02/25/2018 SURGEON: Kota Lomeli MD ANESTHESIA: General anesthesia by Ko Salazar CRNA PREOPERATIVE DIAGNOSES: Solitary functioning right kidney, obstructed with a 4-mm right ureteral stone. [id number]-hb-[id number] renal failure with a creatinine of 2.6. PROCEDURES: Cystoscopy, right retrograde pyelogram, right ureteroscopy, and right ureteral stent insertion, 6-South African x 24 cm with string attached. FINDINGS: No radiodense stone was seen on fluoroscopy. On retrograde pyelogram, there was an area of ureteral stenosis with proximal hydroureteronephrosis. On ureteroscopy, no stone was seen. The patient had passed the stone. SPECIMENS: None. COMPLICATIONS: None. ESTIMATED BLOOD LOSS: None. CLINICAL HISTORY: This is an 87-year-old female who does not have a previous history of kidney stones. However, I saw her back in December 2016 when she presented with bilateral hydronephrosis, chronic renal failure, and retained ureteral stents bilaterally. Since she had an infection at that time, both ureteral stents were removed by myself. Last night, she developed acute right flank pain and she came to the Emergency Room. A CT scan showed a 4-mm stone obstructing her functioning right kidney. It was lodged at the L4 vertebral body level. She has an atrophic left kidney, which does not contribute much to her renal function overall. Since she has an obstructed solitary kidney, she was admitted as an emergency. We are now going to remove the right ureteral stone and insert a ureteral stent. The urinalysis in the Emergency Room showed possible urinary tract infection and she has been given ceftriaxone IV already. Therefore, we did not give her any further antibiotics. DESCRIPTION OF PROCEDURE: The patient was given induction of general anesthesia. She was placed in the dorsal lithotomy position and prepped and draped. We performed fluoroscopy and we could not see any radiodense stones. Cystoscopy was performed using a 21-South African cystoscope and 30-degree lens. She has no bladder tumors visible. The right ureteral orifice was seen easily and we intubated it with a 5-South African open-ended ureteral catheter. A retrograde pyelogram was performed using diluted contrast. This showed no filling defects in the ureter. There were no filling defects in the renal pelvis either. At about the mid ureteral level, there was an area of stenosis and the ureter proximal to this was hydronephrotic. Therefore, we decided to proceed with ureteroscopy. Through the lumen of the open-ended ureteral catheter, we inserted a Sensor wire up to the renal pelvis. The ureteral catheter was then removed entirely. The Sensor wire was left in place. The cystoscope was then removed. We used the ureteroscope and visualizing beside the wire from the OPERATIVE REPORT [id number] FIDE TORRES ureteral orifice all the way up to the renal pelvis, we did not see a stone. There was some tissue edema at the mid ureteral level, which is most likely accounting for the stenosis in the column of dye on the retrograde pyelogram. We then put the guidewire back into the cystoscope by backloading it. Over the wire, we inserted the 6-South African x 24 cm ureteral stent. Once the stent was in correct position, the wire was entirely withdrawn. The distal end of the stent was pushed into the bladder using a pusher. The bladder was then emptied through the cystoscope and the scope was removed. The string on the distal end of the stent is maintained. It was taped to the suprapubic area with a small piece of Tegaderm. The patient will be discharged home today with a prescription for Bactrim, [place] 5/325 mg times 20 tablets with no refills and tamsulosin 0.4 mg p.o. once a day. Fifteen tablets, no refills. I will see her in followup next week to remove the ureteral stent by pulling on the string. TRANSINT:[id number] Voice Confirmation ID: [id number] DOCUMENT ID: [id number] KOTA LOMELI MD at 1723 CC: [id number] DICTATION DATE: 02/25/18 1300 [place] TUTOR: 02/25/18 1341 ADM IN [place] [id number] [place] [id number]
[2018-02-25 03:29] LABS: APPEARANCE CLOUDY (CLEAR); BILIRUBIN NEGATIVE (NEGATIVE); COLOR YELLOW (YELLOW); GLUCOSE NEGATIVE (NEGATIVE); KETONE NEGATIVE (NEGATIVE); NITRITE NEGATIVE (NEGATIVE); PROTEIN 2+ mg/dL (NEGATIVE); SPECIFIC GRAVITY 1.015 (1.005-1.020); UROBILINOGEN NORMAL (NORMAL)
[2018-02-25 03:32] LABS: BACTERIA MODERATE /hpf (NONE SEEN); EPITHELIAL CELLS 0-5 /hpf (0-5); RED CELLS - URINE 0-5 /hpf (0-5)
[2018-02-25 03:33] LABS: BASOPHILS 0.2 % (0-2); EOSINOPHILS 0.8 % (0-7); HEMOGLOBIN 11.4 g/dL (12-16); IMMATURE GRANULOCYTES 0.2 % (0-5); LYMPHOCYTES 4.6 % (15-50); MCH 28.6 pg (26.0-34.0); MCHC 33.5 g/dL (31.0-37.0); MCV 85.2 fL (80.0-100.0); MONOCYTES 7.4 % (2-11); NEUTROPHILS 86.8 % (40-80); RBC 3.99 10x6/uL (4.00-5.40); RDW 13.5 % (11.5-14.5); WBC 10.7 10x3/uL (4.8-10.8)
[2018-02-25 03:35] LABS: PLATELET COUNT 121 10x3/uL (130-400)
[2018-02-25 03:44] LABS: ALBUMIN 3.4 g/dL (3.4-5.0); ANION GAP 10.8 mmol/L (8-16); BILIRUBIN - TOTAL 0.8 mg/dL (0.2-1.3); CALCIUM 8.2 mg/dL (8.5-10.1); CARBON DIOXIDE 27.9 mmol/L (21.0-32.0); CREATININE - SERUM 2.6 mg/dL (0.6-1.3); POTASSIUM - SERUM 3.7 mmol/L (3.5-5.1); PROTEIN - SERUM 6.7 g/dL (6.4-8.2)
[2018-02-25] MEDS ORDERED: HYDROCHLOROTHIA25 MG PO (07:55)
[2018-02-25] MEDS ORDERED: SYMBICORT 16010.2 GM INH (07:56)
[2018-02-25] MEDS ORDERED: IPRATROPIUM BR42 MCG NASAL (07:56)
[2018-02-25 09:54] VITALS: BP 147/53; BMI 26.2
[2018-02-25 14:07] VITALS: BP 164/50
[2018-02-25 15:24] VITALS: BP 154/59
[2018-02-25 20:00] VITALS: BP 145/60
[2018-02-26 00:54] VITALS: BP 170/72
[2018-02-26 03:59] LABS: BASOPHILS 0.2 % (0-2); EOSINOPHILS 0.1 % (0-7); HEMATOCRIT 32.3 % (36.0-48.0); HEMOGLOBIN 10.6 g/dL (12-16); IMMATURE GRANULOCYTES 0.7 % (0-5); LYMPHOCYTES 2.9 % (15-50); MCH 28.5 pg (26.0-34.0); MCHC 32.8 g/dL (31.0-37.0); MCV 86.8 fL (80.0-100.0); MEAN PLATELET VOLUME 11.9 fL (7.4-10.4); NEUTROPHILS 88.1 % (40-80); PLATELET COUNT 115 10x3/uL (130-400); RBC 3.72 10x6/uL (4.00-5.40)
[2018-02-26 04:00] VITALS: BP 151/65
[2018-02-26 04:01] LABS: WBC 18.7 10x3/uL (4.8-10.8)
[2018-02-26 04:17] LABS: ALBUMIN 2.9 g/dL (3.4-5.0); BILIRUBIN - TOTAL 0.4 mg/dL (0.2-1.3); CALCIUM 7.6 mg/dL (8.5-10.1); CREATININE - SERUM 2.7 mg/dL (0.6-1.3); POTASSIUM - SERUM 3.7 mmol/L (3.5-5.1); PROTEIN - SERUM 6.1 g/dL (6.4-8.2)
[2018-02-26 04:19] LABS: CARBON DIOXIDE 19.7 mmol/L (21.0-32.0)
[2018-02-26 08:59] VITALS: BP 140/50
[2018-02-26 10:48] VITALS: Ht 167.6 cm; Wt 73.8 kg
[2018-02-26 12:13] VITALS: BP 116/62
[2018-02-26 15:43] VITALS: BP 133/58
[2018-02-26 21:08] VITALS: BP 125/41
[2018-02-27 01:39] VITALS: BP 117/52
[2018-02-27 05:14] LABS: BASOPHILS 0.6 % (0-2); EOSINOPHILS 2.1 % (0-7); HEMATOCRIT 31.6 % (36.0-48.0); HEMOGLOBIN 10.3 g/dL (12-16); IMMATURE GRANULOCYTES 0.4 % (0-5); LYMPHOCYTES 4.8 % (15-50); MCH 28.2 pg (26.0-34.0); MCHC 32.6 g/dL (31.0-37.0); MCV 86.6 fL (80.0-100.0); MONOCYTES 10.7 % (2-11); NEUTROPHILS 81.4 % (40-80); PLATELET COUNT 112 10x3/uL (130-400); RBC 3.65 10x6/uL (4.00-5.40)
[2018-02-27 05:19] LABS: WBC 12.6 10x3/uL (4.8-10.8)
[2018-02-27 05:28] LABS: ALBUMIN 2.9 g/dL (3.4-5.0); ANION GAP 15.4 mmol/L (8-16); BILIRUBIN - TOTAL 0.4 mg/dL (0.2-1.3); CALCIUM 7.9 mg/dL (8.5-10.1); CARBON DIOXIDE 19.9 mmol/L (21.0-32.0); CREATININE - SERUM 2.8 mg/dL (0.6-1.3); POTASSIUM - SERUM 3.3 mmol/L (3.5-5.1); PROTEIN - SERUM 6.2 g/dL (6.4-8.2)
[2018-02-27 06:14] VITALS: BP 148/65
[2018-02-27 08:51] VITALS: BP 138/45
[2018-02-27 12:04] VITALS: BP 111/44
[2018-02-27 16:22] VITALS: BP 115/47
[2018-02-27 22:02] VITALS: BP 115/55
[2018-02-28 01:02] VITALS: BP 132/30
[2018-02-28 05:39] VITALS: BP 135/45
[2018-02-28 05:56] LABS: BASOPHILS 0.7 % (0-2); EOSINOPHILS 2.1 % (0-7); HEMATOCRIT 30.1 % (36.0-48.0); HEMOGLOBIN 9.9 g/dL (12-16); IMMATURE GRANULOCYTES 0.8 % (0-5); LYMPHOCYTES 6.1 % (15-50); MCH 28.2 pg (26.0-34.0); MCHC 32.9 g/dL (31.0-37.0); MCV 85.8 fL (80.0-100.0); MEAN PLATELET VOLUME 11.8 fL (7.4-10.4); MONOCYTES 11.3 % (2-11); PLATELET COUNT 119 10x3/uL (130-400); RBC 3.51 10x6/uL (4.00-5.40); RDW 14.2 % (11.5-14.5)
[2018-02-28 06:14] LABS: WBC 8.6 10x3/uL (4.8-10.8)
[2018-02-28 06:26] LABS: ALBUMIN 2.6 g/dL (3.4-5.0); ANION GAP 15.7 mmol/L (8-16); BILIRUBIN - TOTAL 0.36 mg/dL (0.2-1.3); CALCIUM 8.3 mg/dL (8.5-10.1); CARBON DIOXIDE 21.7 mmol/L (21.0-32.0); CREATININE - SERUM 2.2 mg/dL (0.6-1.3); POTASSIUM - SERUM 3.4 mmol/L (3.5-5.1); PROTEIN - SERUM 5.9 g/dL (6.4-8.2)
[2018-02-28 08:13] VITALS: BP 135/54
[2018-02-28 12:46] VITALS: BP 131/50
[2018-02-28 16:12] VITALS: BP 105/43
[2018-02-28 21:25] VITALS: BP 133/47
[2018-03-01 01:43] VITALS: BP 145/48
[2018-03-01 04:59] LABS: BASOPHILS 0.7 % (0-2); EOSINOPHILS 4.3 % (0-7); HEMATOCRIT 28.3 % (36.0-48.0); HEMOGLOBIN 9.4 g/dL (12-16); IMMATURE GRANULOCYTES 1.8 % (0-5); LYMPHOCYTES 11.1 % (15-50); MCH 28.2 pg (26.0-34.0); MCHC 33.2 g/dL (31.0-37.0); MEAN PLATELET VOLUME 11.3 fL (7.4-10.4); MONOCYTES 13.7 % (2-11); NEUTROPHILS 68.4 % (40-80); PLATELET COUNT 122 10x3/uL (130-400); RBC 3.33 10x6/uL (4.00-5.40); RDW 13.8 % (11.5-14.5); WBC 6.8 10x3/uL (4.8-10.8)
[2018-03-01 05:29] LABS: ALBUMIN 2.6 g/dL (3.4-5.0); ANION GAP 13.2 mmol/L (8-16); BILIRUBIN - TOTAL 0.34 mg/dL (0.2-1.3); CALCIUM 7.9 mg/dL (8.5-10.1); CARBON DIOXIDE 23.9 mmol/L (21.0-32.0); CREATININE - SERUM 2.2 mg/dL (0.6-1.3); POTASSIUM - SERUM 3.1 mmol/L (3.5-5.1); PROTEIN - SERUM 5.4 g/dL (6.4-8.2)
[2018-03-01 05:38] VITALS: BP 142/45
[2018-03-01 08:45] VITALS: BP 142/63
[2018-03-01 12:41] VITALS: BP 156/52
[2018-03-01 16:00] VITALS: BP 144/56
[2018-03-01 20:30] VITALS: BP 154/56
[2018-03-02 00:30] VITALS: BP 150/57
[2018-03-02 04:30] VITALS: BP 153/68
[2018-03-02 06:12] LABS: BASOPHILS 0.8 % (0-2); EOSINOPHILS 4.8 % (0-7); IMMATURE GRANULOCYTES 4.3 % (0-5); LYMPHOCYTES 16.5 % (15-50); MCHC 33.3 g/dL (31.0-37.0); MEAN PLATELET VOLUME 11.5 fL (7.4-10.4); NEUTROPHILS 59.6 % (40-80); RBC 3.57 10x6/uL (4.00-5.40); WBC 7.3 10x3/uL (4.8-10.8)
[2018-03-02 06:15] LABS: PLATELET COUNT 148 10x3/uL (130-400)
[2018-03-02 07:06] LABS: ALBUMIN 2.7 g/dL (3.4-5.0); ANION GAP 14.5 mmol/L (8-16); BILIRUBIN - TOTAL 0.45 mg/dL (0.2-1.3); CALCIUM 8.5 mg/dL (8.5-10.1); CREATININE - SERUM 2.6 mg/dL (0.6-1.3); POTASSIUM - SERUM 3.5 mmol/L (3.5-5.1); PROTEIN - SERUM 6.2 g/dL (6.4-8.2)
[2018-03-02 07:59] VITALS: BP 161/62
[2018-03-02 11:17] VITALS: BP 134/43
[2018-03-02] MEDS ORDERED: BACTRIM DS TABL1 TAB PO (13:51)
[2018-03-02] MEDS ORDERED: FLOMAX0.4 MG PO (13:52)
[2018-03-02] MEDS ORDERED: HYDROCODON-ACE1 EAC7 PO (13:52)
[2018-03-02 15:32] VITALS: BP 146/48
== END 2018-03-02 17:01 | disposition home health service (06) | DRG 694 ==
LOC: D.ER 02:26 → D.M2 05:34 → D.EDHOLD 05:34 → D.M2 06:04
PROVIDERS: Family Medicine; Urology
PROC: BT1D1ZZ Fluoroscopy of Right Kidney, Ureter and Bladder using Low Osmolar Contrast (ICD-10-PCS; principal; 2018-02-25 12:45)
PROC: 0T778DZ Dilation of Left Ureter with Intraluminal Device, Via Natural or Artificial Opening Endoscopic (ICD-10-PCS; 2018-02-25 12:45)
DX: N20.1 Calculus of ureter (principal); N17.9 Acute kidney failure, unspecified; N39.0 Urinary tract infection, site not specified; I12.9 Hypertensive chronic kidney disease with stage 1 through stage 4 chronic kidney disease, or unspecified chronic kidney disease; E11.22 Type 2 diabetes mellitus with diabetic chronic kidney disease; N18.9 Chronic kidney disease, unspecified; J44.9 Chronic obstructive pulmonary disease, unspecified

== ENCOUNTER 2020-11-11 19:06 | Inpatient (IN) | payer MEDICARE, BC ==
[~2020-11-11] VITALS: Ht 167.6 cm; Wt 72.6 kg
[~2020-11-11 19:06] MED LIST changes: +BACTRIM DS TABL1 TAB PO; +FLOMAX0.4 MG PO; +HYDROCODON-ACE1 EAC7 PO; +IPRATROPIUM BR42 MCG NASAL; +SYMBICORT 16010.2 GM INH
[2020-11-11 19:32] LABS: BASOPHILS 0.9 % (0-2); EOSINOPHILS 2.3 % (0-7); HEMATOCRIT 37.6 % (36.0-48.0); HEMOGLOBIN 12.6 g/dL (12-16); IMMATURE GRANULOCYTES 0.3 % (0-5); LYMPHOCYTE ABS# 0.78 10x3/uL (1.18-3.74); LYMPHOCYTES 11.8 % (15-50); MCH 31.3 pg (26.0-34.0); MCHC 33.5 g/dL (31.0-37.0); MCV 93.3 fL (80.0-100.0); MEAN PLATELET VOLUME 11.4 fL (7.4-10.4); MONOCYTES 15.1 % (2-11); NEUTROPHIL ABS# 4.62 10x3/uL (1.56-6.13); NEUTROPHILS 69.6 % (40-80); PLATELET COUNT 139 10x3/uL (130-400); RBC 4.03 10x6/uL (4.00-5.40); RDW 12.9 % (11.5-14.5); WBC 6.6 10x3/uL (4.8-10.8)
[2020-11-11 19:40] LABS: APTT 36.5 SECONDS (22.8-39.4); INR 1.22 (0.85-1.17); PROTIME 14.3 SECONDS (11.6-15.0)
[2020-11-11 19:41] LABS: CALC OSMOLALITY 281 mosm/kg (275-300); CALCIUM 8.3 mg/dL (8.5-10.1); CARBON DIOXIDE 25.9 mmol/L (21.0-32.0); CHLORIDE - SERUM 103 mmol/L (98-107); CREATININE - SERUM 1.9 mg/dL (0.6-1.3); D-DIMER-QUANTITATIVE 1.79 ug/mLFEU (0.20-0.54); GLUCOSE 96 mg/dL (74-106); POTASSIUM - SERUM 4.5 mmol/L (3.5-5.1); SODIUM 139 mmol/L (136-145); UREA NITROGEN 25 mg/dL (7-18); eGFR NON AFRICAN AMERICAN 26 mL/min (90-120)
[2020-11-11 19:57] LABS: ALBUMIN 3.6 g/dL (3.4-5.0); ALKALINE PHOSPHATASE 37 U/L (30-120); ALT (SGPT) 19 U/L (10-68); BILIRUBIN - TOTAL 1.61 mg/dL (0.2-1.3); C-REACTIVE PROTEIN 10.7 mg/dL (0.0-0.9); LIPASE 60 U/L (73-393); MAGNESIUM - SERUM 2.4 mg/dL (1.8-2.4); PRO BNP 11994 pg/mL (0-450); PROTEIN - SERUM 6.5 g/dL (6.4-8.2); THYROID STIMULATING HORMONE 2.13 uIU/mL (0.36-3.74)
[2020-11-11 19:58] LABS: TROPONIN-I < 0.017 ng/mL (0.000-0.060)
[2020-11-11 20:26] LABS: BILIRUBIN NEGATIVE (NEGATIVE); KETONE SMALL mg/dL (NEGATIVE); NITRITE NEGATIVE (NEGATIVE)
[2020-11-11 20:36] LABS: BACTERIA MODERATE HPF (NONE SEEN)
[2020-11-11 23:01] LABS: SARS-CoV-2 ANTIGEN NEGATIVE- SARS-COV-2 (NEGATIVE)
[2020-11-12 01:19] VITALS: BP 166/62
[2020-11-12 01:24] VITALS: BP 166/62; BMI 25.8
--- NOTE | 2020-11-12 02:55 | NUR ---
VSS. SR PER CM HR 72. ADMISSION ASSESSMENT, HISTORY AND HOME MED LIST COMPLETED. O2 2LNC. LUNGS DIMINISHED IN BASES BILAT. CORRAL. PALPABLE PERIPHERAL PULSES. IV TO LAC SL. ALERTA DN ORIENTED TO PERSON, PLACE AND TIME. DENEIS ANY DISCOMFORT. CALL LIGHT WITHIN REACH.
--- NOTE | 2020-11-12 04:34 | NUR ---
SR PER CM HR 72. PT RESTING WITH EYES CLOSED. RESP EVEN AND REGULAR. SR UP X2,CALL LIGHT WITHINREACH.
--- NOTE | 2020-11-12 06:11 | NUR ---
HAS C/O LOWER BACK PAIN. REPOSITIONED IN BED AND PILLOW PLACED UNDER L SIDE. PT STATES SEH FEELS MUCH IMPROVED. SR UP X2,CALL LIGHT WITHIN REACH.
[2020-11-12 14:00] VITALS: BP 136/73
--- NOTE | 2020-11-12 20:52 | NUR ---
RECEIVED PATIENT IN HER ROOM, SHE CURRENTLY VOMITTED 50ML(BEGINNING OF SHIFT). ZOFRAN GIVEN IV- GOOD RESULTS. SHE COMPLAINED OF PAIN. CALLED [facility] FOR PA[facility]- RECEIVED ORDERS FOR TRAMADOL 50 MG PO Q 6 HOURS PRN PAIN AND TYLENOL 650MG PO Q 6 HOURS PRN PAIN. WILL MONITOR FOR EFFECTIVENESS
--- NOTE | 2020-11-13 01:24 | NUR ---
PATIENT RESTING QUIETLY. NO NAUSEA OR VOMITING NOTED. CAN MAKE ALL OF HER NEEDS KNOWN. CALL LIGHT WITHIN REACH
[2020-11-13 05:53] VITALS: BP 138/73
[2020-11-13 07:23] LABS: BASOPHILS 0.3 % (0-2); EOSINOPHILS 0 % (0-7); HEMATOCRIT 37.8 % (36.0-48.0); HEMOGLOBIN 12.3 g/dL (12-16); IMMATURE GRANULOCYTES 0.1 % (0-5); LYMPHOCYTE ABS# 0.35 10x3/uL (1.18-3.74); MCH 30.8 pg (26.0-34.0); MCHC 32.5 g/dL (31.0-37.0); MCV 94.7 fL (80.0-100.0); MEAN PLATELET VOLUME 11.3 fL (7.4-10.4); MONOCYTES 16.8 % (2-11); NEUTROPHIL ABS# 5.42 10x3/uL (1.56-6.13); NEUTROPHILS 77.8 % (40-80); RBC 3.99 10x6/uL (4.00-5.40)
[2020-11-13 07:43] LABS: PLATELET COUNT 169 10x3/uL (130-400)
[2020-11-13 07:55] LABS: ALBUMIN 3.5 g/dL (3.4-5.0); ANION GAP 13.9 mmol/L (8-16); BILIRUBIN - TOTAL 0.79 mg/dL (0.2-1.3); CALCIUM 8.7 mg/dL (8.5-10.1); CARBON DIOXIDE 25.3 mmol/L (21.0-32.0); CREATININE - SERUM 1.8 mg/dL (0.6-1.3); POTASSIUM - SERUM 4.2 mmol/L (3.5-5.1); PROTEIN - SERUM 6.8 g/dL (6.4-8.2)
--- NOTE | 2020-11-13 08:49 | NUR ---
SHE IS ALERT, TALKING. HELPED TO THE BEDSIDE COMMODE. SHE IS WEARING 2 L NC. NO SOB. THE CALL LIGHT IS WITHIN REACH. BOTH OF THE SIDE RAILS ARE UP.
[2020-11-13 09:26] VITALS: BP 161/61
[2020-11-13 10:35] VITALS: BP 168/77
[2020-11-13 14:34] VITALS: BMI 25.8
[2020-11-13 15:29] VITALS: BP 178/58
--- NOTE | 2020-11-13 19:18 | NUR ---
22 G STARTED TO THE RAC, TIMES 2 ATTEMPTS.
--- NOTE | 2020-11-13 21:48 | NUR ---
PATIENT HELPED TO BEDSIDE COMMODE WITH TECH
[2020-11-13 23:59] VITALS: BP 178/58
--- NOTE | 2020-11-14 00:23 | NUR ---
PATIENT REPORT TO FLOOR RN.
--- NOTE | 2020-11-14 00:50 | NUR ---
ADMITED BY STRETCHER AND PLACED IN BED LOCKED AND LOW CALL LIGHT IS IN REACH NEEDS PROVIDED FOR AT THIS TIME O2 AT 2L
--- NOTE | 2020-11-14 01:00 | NUR ---
ALL ASSESSMENTS DONE PT HAS ORDERS FOR TELE WAS ON ER HOLD X2 DAYS NON AVAILABLE
--- NOTE | 2020-11-14 02:01 | NUR ---
I have reviewed this patient and I concur with the Shift Assessment completed by the Licensed Practical Nurse today this shift.
[2020-11-14 04:15] VITALS: BP 146/70
[2020-11-14 06:53] LABS: BASOPHILS 0.4 % (0-2); EOSINOPHILS 0.7 % (0-7); HEMATOCRIT 37.2 % (36.0-48.0); IMMATURE GRANULOCYTES 0.3 % (0-5); LYMPHOCYTE ABS# 0.54 10x3/uL (1.18-3.74); LYMPHOCYTES 7.4 % (15-50); MCH 30.7 pg (26.0-34.0); MCHC 32.3 g/dL (31.0-37.0); MCV 95.1 fL (80.0-100.0); MEAN PLATELET VOLUME 11.5 fL (7.4-10.4); MONOCYTES 12.3 % (2-11); NEUTROPHIL ABS# 5.73 10x3/uL (1.56-6.13); NEUTROPHILS 78.9 % (40-80); PLATELET COUNT 185 10x3/uL (130-400); RBC 3.91 10x6/uL (4.00-5.40); RDW 13.1 % (11.5-14.5); WBC 7.3 10x3/uL (4.8-10.8)
[2020-11-14 07:25] LABS: ALBUMIN 3.8 g/dL (3.4-5.0); ANION GAP 17.1 mmol/L (8-16); BILIRUBIN - TOTAL 0.83 mg/dL (0.2-1.3); CALCIUM 8.9 mg/dL (8.5-10.1); CARBON DIOXIDE 26.7 mmol/L (21.0-32.0); CREATININE - SERUM 2.2 mg/dL (0.6-1.3); POTASSIUM - SERUM 3.8 mmol/L (3.5-5.1); PROTEIN - SERUM 6.5 g/dL (6.4-8.2)
[2020-11-14 08:44] VITALS: BP 157/58
[2020-11-14 13:02] VITALS: BP 124/58
--- NOTE | 2020-11-14 14:30 | EC ---
PATIENT:FIDE TORRES DATE OF SERVICE: 11/11/20 SEX: F MEDICAL RECORD: [id number] DATE OF : 32 LOCATION:D.M2 D.212 AGE OF PATIENT: 89 ADMISSION DATE: 11/11/20 REFERRING PHYSICIAN: INTERPRETING PHYSICIAN: BRUNO MYERS MD ECHOCARDIOGRAM REPORT ECHO CHARGES 4 ECHO COMPLETE Date: 11/13/20 CLINICAL DIAGNOSIS: CHF ECHOCARDIOGRAPHIC MEASUREMENTS (adult normal given) AC root (d.<3.7cm) 2.8 cm LV Septum d (<1.2 cm> 1.1 cm Valve Excursion 1.4 cm LV Septum (systole) 1.4 cm Left Atria (s.<4.0cm> 4.9 cm LVPW d(<1.2cm) 0.8 cm RV (d.<2.3cm) 2.6 cm LVPW (sytole) 1.0 cm LV diastole(<5.6CM) 6.2 cm MV E-F(>70mm/sec) cm LV systole 5.1 cm LVOT Diameter 1.6 cm MV exc.(>10mm) 1.6 cm Est.ejection fraction (50-75%) % DOPPLER: LVIT cm/sec A 45 cm/sec E 98 cm/sec LA cm/sec RVSP 36 mmHg LVOT 88 cm/sec AOP1/2T m/s Asc. Ao 160 cm/sec RVOT 51 cm/sec RA cm/sec PA 57 cm/sec AV Gradient Peak 10.3 mmHg AV Mean 5.4 mmHg AV Area 1.0 cm MV Gradient Peak 4.8 mmHg MV Mean 1.9 mmHg MV Area cm COMMENTS: Shank Tapper: Michael [facility] Director Blood Bank: 3 Dr. [place] TAPE# Pericardial Effusion N DATE OF SERVICE: Adequate 2D, color flow imaging, spectral Doppler, and M-Mode. No LVH. LV internal dimensions are normal. Wall motion normal. EF greater than or equal to 55%. Aortic valve is sclerotic. No evidence of stenosis by Doppler interrogation. Mild AI by color flow imaging. Left atrium is dilated at 4.9 cm. Mitral valve shows no prolapse. Mild MR. Right-sided chambers are grossly normal. Trace to mild TR. ECHOCARDIOGRAM REPORT [id number] FIDE TORRES TRANSINT:[id number] Voice Confirmation ID: [id number] DOCUMENT ID: [id number] BRUNO MYERS MD at 1430 CC: [id number] DICTATION DATE: 11/13/20 1633 BOOT LINER MAKER: 11/13/20 2315 ADM IN [facility] [address] [id number]
--- NOTE | 2020-11-14 15:37 | NUR ---
DR. HUERTA AND LORIE FOR CARDIOLOGY NOTIFIED OF HR DECRESED TO 40'S.
[2020-11-14 16:08] VITALS: BP 138/36
--- NOTE | 2020-11-14 18:09 | NUR ---
ANIKA TO LORIE MONTEIRO FOR DR. MISTRY. STATES NO CHANGES IN MEDS FOR DROP IN HR EARLEIR TODAY. HR NOW 70 SR.
[2020-11-14 21:50] VITALS: BP 170/64
[2020-11-15 01:48] VITALS: BP 178/50
[2020-11-15 04:28] VITALS: BP 158/59
--- NOTE | 2020-11-15 04:49 | NUR ---
I have reviewed this patient and I concur with the Shift Assessment completed by the Licensed Practical Nurse today this shift.
[2020-11-15 06:24] LABS: BASOPHILS 0.7 % (0-2); EOSINOPHILS 6.5 % (0-7); HEMATOCRIT 37.9 % (36.0-48.0); HEMOGLOBIN 12.6 g/dL (12-16); IMMATURE GRANULOCYTES 0.1 % (0-5); LYMPHOCYTE ABS# 0.63 10x3/uL (1.18-3.74); LYMPHOCYTES 9.3 % (15-50); MCHC 33.2 g/dL (31.0-37.0); MEAN PLATELET VOLUME 11.3 fL (7.4-10.4); MONOCYTES 15.6 % (2-11); NEUTROPHIL ABS# 4.59 10x3/uL (1.56-6.13); NEUTROPHILS 67.8 % (40-80); PLATELET COUNT 184 10x3/uL (130-400); RBC 4.07 10x6/uL (4.00-5.40); RDW 12.5 % (11.5-14.5); WBC 6.8 10x3/uL (4.8-10.8)
[2020-11-15 06:40] LABS: MCV 93.1 fL (80.0-100.0)
[2020-11-15 06:50] LABS: ALBUMIN 3.7 g/dL (3.4-5.0); ANION GAP 12.6 mmol/L (8-16); BILIRUBIN - TOTAL 0.91 mg/dL (0.2-1.3); CALCIUM 8.4 mg/dL (8.5-10.1); CARBON DIOXIDE 30.2 mmol/L (21.0-32.0); CREATININE - SERUM 2.1 mg/dL (0.6-1.3); PROTEIN - SERUM 6.7 g/dL (6.4-8.2)
[2020-11-15 07:10] LABS: POTASSIUM - SERUM 2.8 mmol/L (3.5-5.1)
[2020-11-15 08:05] VITALS: BP 162/48
--- NOTE | 2020-11-15 09:00 | NUR ---
FELL THIS AM TO FLOOR GETTING OOB BY HERSELF. DR. HUERTA NOTIFIED. NEW ORDERS GIVEN.
[2020-11-15 12:18] VITALS: BP 186/49
[2020-11-15 21:02] VITALS: BP 134/38
[2020-11-16 01:31] VITALS: BP 170/45
--- NOTE | 2020-11-16 05:32 | NUR ---
I have reviewed this patient and I concur with the Shift Assessment completed by the Licensed Practical Nurse today this shift.
[2020-11-16 05:45] VITALS: BP 123/66
[2020-11-16 05:55] LABS: BASOPHILS 0.6 % (0-2); EOSINOPHILS 2.6 % (0-7); HEMATOCRIT 37.4 % (36.0-48.0); HEMOGLOBIN 12.7 g/dL (12-16); IMMATURE GRANULOCYTES 0.2 % (0-5); LYMPHOCYTE ABS# 0.72 10x3/uL (1.18-3.74); MCH 30.8 pg (26.0-34.0); MEAN PLATELET VOLUME 11.4 fL (7.4-10.4); MONOCYTES 16.6 % (2-11); NEUTROPHIL ABS# 6.46 10x3/uL (1.56-6.13); PLATELET COUNT 193 10x3/uL (130-400); RBC 4.12 10x6/uL (4.00-5.40); RDW 12.3 % (11.5-14.5)
--- NOTE | 2020-11-16 06:00 | NUR ---
PATIENT IS LYING IN BED AT THIS TIME. PT IS ALERT, BUT CONFUSED, PLAN OF CARE REVIEWED AND ASSESSMENT HAS BEEN COMPLETED.PATIENT SHOWS NO S/S OF DISTRESS. BED ALARM ON.
[2020-11-16 06:05] LABS: MCV 90.8 fL (80.0-100.0)
[2020-11-16 06:23] LABS: ALBUMIN 3.8 g/dL (3.4-5.0); ANION GAP 13.1 mmol/L (8-16); BILIRUBIN - TOTAL 1.13 mg/dL (0.2-1.3); CALCIUM 8.8 mg/dL (8.5-10.1); CARBON DIOXIDE 27.2 mmol/L (21.0-32.0); CREATININE - SERUM 2.1 mg/dL (0.6-1.3); POTASSIUM - SERUM 3.3 mmol/L (3.5-5.1); PROTEIN - SERUM 6.7 g/dL (6.4-8.2)
[2020-11-16 08:23] VITALS: BP 165/63
--- NOTE | 2020-11-16 08:30 | NUR ---
PO MEDS GIVEN AT THIS TIME. PATIENT IS IN AN UNEASY MOOD AND NOT BEING VERY NICE, BUT STILL TAKES MEDS
--- NOTE | 2020-11-16 09:14 | NUR ---
INFECTION CONTROL TAKES PATIENT OFF OF ISOLATION
--- NOTE | 2020-11-16 11:35 | NUR ---
Nutrition Follow-up: Pt confused. Discussed with nursing; unsure how pt has been eating. Noted 75-100% intake recorded on door. Diet: Cardiac Wt: 160# (11/13) Labs noted: Na 134, K+ 3.3, BUN 39, Cre 2.1, GFR 23, Alb 3.8 Meds noted: Florajen, Lasix, HCTZ, electrolyte protocol -Encourage PO intake and honor food preferences within diet restrictions. -Need new wt. -RD will follow up within 5 days.
[2020-11-16 12:13] VITALS: BP 137/72
--- NOTE | 2020-11-16 14:04 | NUR ---
PATIENT IS SITTING UP IN BED, ALERT. PATIENT DENIES NEEDS. SHOWS NO S/S OF DISTRESS. CALL LIGHT IN REACH
[2020-11-16 15:49] VITALS: BP 167/53
[2020-11-16 19:35] VITALS: BP 156/62
[2020-11-17 04:28] VITALS: BP 152/52
[2020-11-17 05:34] LABS: BASOPHILS 0.5 % (0-2); EOSINOPHILS 1.4 % (0-7); HEMATOCRIT 40.2 % (36.0-48.0); HEMOGLOBIN 13.5 g/dL (12-16); IMMATURE GRANULOCYTES 0.2 % (0-5); LYMPHOCYTE ABS# 0.82 10x3/uL (1.18-3.74); LYMPHOCYTES 9.6 % (15-50); MCH 30.6 pg (26.0-34.0); MCHC 33.6 g/dL (31.0-37.0); MCV 91.2 fL (80.0-100.0); MEAN PLATELET VOLUME 11.2 fL (7.4-10.4); MONOCYTES 14.5 % (2-11); NEUTROPHIL ABS# 6.32 10x3/uL (1.56-6.13); NEUTROPHILS 73.8 % (40-80); PLATELET COUNT 208 10x3/uL (130-400); RBC 4.41 10x6/uL (4.00-5.40); RDW 12.3 % (11.5-14.5); WBC 8.6 10x3/uL (4.8-10.8)
[2020-11-17 06:13] LABS: ALBUMIN 4.2 g/dL (3.4-5.0); ANION GAP 14.6 mmol/L (8-16); BILIRUBIN - TOTAL 1.25 mg/dL (0.2-1.3); CARBON DIOXIDE 30.6 mmol/L (21.0-32.0); CREATININE - SERUM 2.4 mg/dL (0.6-1.3); POTASSIUM - SERUM 3.2 mmol/L (3.5-5.1); PROTEIN - SERUM 7.2 g/dL (6.4-8.2)
[2020-11-17 07:50] VITALS: BP 127/62
[2020-11-17 11:38] VITALS: BP 133/57
[2020-11-17 15:09] VITALS: BP 141/67
[2020-11-17 19:14] VITALS: BP 144/64
--- NOTE | 2020-11-17 19:30 | NUR ---
PT IN BED, EYES CLOSED, RESP EVEN AND UNLABORED, NO DISTRESS NOTED, CL IN REACH, SR UP X 2.
[2020-11-18 04:22] VITALS: BP 155/66
--- NOTE | 2020-11-18 05:03 | NUR ---
I have reviewed this patient and I concur with the Shift Assessment completed by the Licensed Practical Nurse today this shift.
--- NOTE | 2020-11-18 07:24 | NUR ---
AM ROUNDING DONE WITH PATIENT BEING ON VIDEO MONITOR TO HELP KEEP HER OXYGEN IN HER NOSE BY VIEWING. ON 3L PER NC. ON HEART MONITOR. PATIENT IS A DNR CODE STATUS. LEFT FA PIV SEEN WITH NS INFSUING AT 10 CC/HR. BED ALARM AND CARMELITA MAT ALARM ON AND IN USE. MOORE CATH PATENT WITH CLEAR YELLOW URINE. IN REPORT, PATIENT IS REFUSING TO EAT OR DRINK. WILL TRY TO ENCOURAGE HER TODAY.
[2020-11-18 07:30] VITALS: BP 139/56
--- NOTE | 2020-11-18 09:32 | NUR ---
PATIENT IS EATING SOME OATMEAL AND HAS DRANK ALL HER COFFEE AND WATER. REQUESTS MORE COFFEE, GIVEN ALONG WITH WATER.
[2020-11-18 12:00] VITALS: BP 117/48
--- NOTE | 2020-11-18 13:45 | NUR ---
COMPLETE BATH AND LINEN CHANGE DONE. PATIENT'S ENTIRE BODY IS COVERED WITH HEALING BRUISES. BED ALARM AND CARMELITA MAT ALARM ON AND IN USE.
[2020-11-18 16:00] VITALS: BP 124/62
--- NOTE | 2020-11-18 17:44 | NUR ---
NYSTATIN GIVEN ORDERED FOR THROAT. STATES TO IT FEELING BETTER. BED ALARM AND CARMELITA MAT ALARM ON AND IN USE.
[2020-11-18 20:00] VITALS: BP 126/70
--- NOTE | 2020-11-18 23:33 | NUR ---
INITIAL ROUNDS COMPLETED AT 1909 HRS. PT DENIED ANY DISCOMFORT. ASSESSMENT COMPLETED AT [address] PER CM HR 101. PT ALERT AND ORIENTED TO PERSON, PLACE AND SITUATION. REORIENTED TO TIME. O2 3LNC. LUNGS DIMINISHED IN BASES BILAT. BRUISES AND SCABS NOTED TO BILAT ARMS, R HAND. BRUISES NOTED TO OUTER ASPECT OF R KNEE. IV TO LFA WIHT NS AT 10CC/HR. IV PATENT. ABD SOFT WITH ACTIVE BS NOTED. MOORE DRAINING YELLOW URINE. INTERIOR OF MOUTH AND THROAT RED AND LEW. PALPABLE PERIPHERAL PULSES. ULTRAM 50MG POP GIVEN AT 2255 HRS FOR C/O HEADACHE AND BACK PAIN. PT CURRENTLY RESTING WITH EYES CLOSED. RESP EVEN AND REGULAR. SR UP X2,CALL LIGHT WITHIN REACH AND BED ALARM ON.
[2020-11-19] VITALS: BP 124/65
--- NOTE | 2020-11-19 00:37 | NUR ---
PT AWAKE; DENIED ANY DISOCMFORT. SR UP X3, CALL LIGHT WITHIN REACH.
--- NOTE | 2020-11-19 02:36 | NUR ---
PT RESTING WITH EYES CLOSED. RESP EVEN AND REGULAR. SR UP X2, CALL LIGHT WITHIN REACH.
--- NOTE | 2020-11-19 04:06 | NUR ---
PT AWAKE; DENIES ANY DISCOMFORT. SR UP X2,CALL LIGHT WITHIN REACH.
[2020-11-19 06:00] LABS: BASOPHILS 0.5 % (0-2); EOSINOPHILS 2.3 % (0-7); HEMATOCRIT 34.1 % (36.0-48.0); HEMOGLOBIN 11.5 g/dL (12-16); IMMATURE GRANULOCYTES 0.2 % (0-5); LYMPHOCYTE ABS# 0.85 10x3/uL (1.18-3.74); LYMPHOCYTES 9.9 % (15-50); MCH 30.5 pg (26.0-34.0); MCHC 33.7 g/dL (31.0-37.0); MCV 90.5 fL (80.0-100.0); MEAN PLATELET VOLUME 11.1 fL (7.4-10.4); MONOCYTES 14.6 % (2-11); NEUTROPHIL ABS# 6.19 10x3/uL (1.56-6.13); NEUTROPHILS 72.5 % (40-80); PLATELET COUNT 205 10x3/uL (130-400); RBC 3.77 10x6/uL (4.00-5.40); RDW 12.4 % (11.5-14.5); WBC 8.6 10x3/uL (4.8-10.8)
--- NOTE | 2020-11-19 06:11 | NUR ---
VSS THROUGHOUT NIGHT. SR/ST PER CM. PT STATED ULTRAM HELPED CONTROL HER PAIN. NEEDS MET; WILL CONTINUE TO MONITOR.
[2020-11-19 07:15] VITALS: BP 120/60
[2020-11-19 07:17] LABS: ANION GAP 11.6 mmol/L (8-16); CALCIUM 8.3 mg/dL (8.5-10.1); CARBON DIOXIDE 29.5 mmol/L (21.0-32.0); POTASSIUM - SERUM 3.1 mmol/L (3.5-5.1)
[2020-11-19 07:27] LABS: CREATININE - SERUM 3.3 mg/dL (0.6-1.3)
[2020-11-19 08:16] VITALS: BP 125/67
[2020-11-19 11:56] VITALS: BP 115/56
[2020-11-19 15:51] VITALS: BP 121/61
[2020-11-19 20:49] VITALS: BP 104/47
--- NOTE | 2020-11-19 22:39 | NUR ---
INITAIL ROUNDS COMPELTED A 191 HRS. PT RESTING WITH EYES CLOSED. RESP EVEN AND REGULAR. ASSESSMENT COMPLETED AT 1954 HRS. VSS. SR PER CM HR 75. PT ALAERT AND ORIENTED TO PERSON,PLACE AND SITUATION. REORIENTED TO TIME. NUMEROUS BRUISES AND SCABS TO BILAT ARMS. LARGE BRUISE NOTED TO OUTER ASPECT OF R KNEE. O2 2LNC. LUNGS DIMINISHED IN BASES BILAT. CORRAL. LFA SL. MOORE DRAINIING YELLOW URINE. PM MED GIVEN. PT CURRENTLY RESTING WITH EYES CLOSED. RESP EVEN AND REGULAR. SR UP X3,CALL LIGHT WITHIN REACH AND BED ALRM ON.
--- NOTE | 2020-11-20 00:13 | NUR ---
ZOFRAN 4MG SIVP GIVEN FOR C/O MILD NAUSEA. CALL LIGHT WITHIN REACH.
[2020-11-20 00:30] VITALS: BP 104/61
--- NOTE | 2020-11-20 03:48 | NUR ---
PT RESTING WITH EYES CLOSED. RESP EVEN AND REGULAR. SR UP X2, CALL LIGHT WITHIN REACH.
--- NOTE | 2020-11-20 04:37 | NUR ---
PT AWAKE; DENIES ANY DISCOMFORT. SR UP X2, CALL LIGHT WITHIN REACH.
[2020-11-20 04:55] VITALS: BP 128/96
--- NOTE | 2020-11-20 06:16 | NUR ---
VSS THROUGHOUT NIGHT. PT STATED IV ZOFRAN ALLEVIATED HER NAUSEA. NEEDS MET; WILL CONTINUE TO MONITOR.
--- NOTE | 2020-11-20 07:40 | NUR ---
LYING IN BED, AWAKE/ALERT/ORIENTED X 2, T/R FREQ FOR C/C, FC PATENT AND DRAINING CLEAR YELLOW URINE IN AMPLE AMT, CATH CARE PROVIDED WITH DAILY BATH AND PRN, INCONT OF BOWEL WITH USE OF INCONT PADS, PERICARE PROVIDED WITH DAILY BATH AND PRN, DENIES PAIN/OTHER DISCOMFORT AT THIS TIME, CALL LIGHT/PHONE/WATER WITHIN REACH, NO S/S OF ACUTE DISTRESS OBSERVED.
[2020-11-20 08:00] VITALS: BP 127/61
[2020-11-20 08:29] LABS: BASOPHILS 1.4 % (0-2); EOSINOPHILS 6.6 % (0-7); HEMATOCRIT 35.4 % (36.0-48.0); HEMOGLOBIN 11.5 g/dL (12-16); IMMATURE GRANULOCYTES 0.1 % (0-5); LYMPHOCYTE ABS# 0.88 10x3/uL (1.18-3.74); LYMPHOCYTES 12.7 % (15-50); MCH 30.1 pg (26.0-34.0); MCHC 32.5 g/dL (31.0-37.0); MEAN PLATELET VOLUME 10.8 fL (7.4-10.4); NEUTROPHIL ABS# 4.18 10x3/uL (1.56-6.13); NEUTROPHILS 60.2 % (40-80); PLATELET COUNT 194 10x3/uL (130-400); RBC 3.82 10x6/uL (4.00-5.40); RDW 12.5 % (11.5-14.5)
[2020-11-20 08:30] LABS: MCV 92.7 fL (80.0-100.0)
[2020-11-20 08:44] LABS: CALCIUM 8.5 mg/dL (8.5-10.1); CARBON DIOXIDE 29.1 mmol/L (21.0-32.0); POTASSIUM - SERUM 4.1 mmol/L (3.5-5.1)
[2020-11-20 11:00] VITALS: BP 112/51
--- NOTE | 2020-11-20 13:06 | NUR ---
Nutrition Reassessment/Follow-up: Noted pt with decreased PO intake 2/2 thrush, although seems to be improving. Nausea overnight but nursing reports none this AM. Diet: Full Liquid, Ensure BID No new wt; last wt: 160# (11/13) Labs noted: Na 133, BUN 58, Cre 3.0, GFR 16, K+ 4.1, Glu 112 Meds noted: HCTZ, Micro K, Zofran, Florajen, Nystatin -Nutrition needs unchanged; no new wt available. -Encourage PO intake and honor food preferences within diet restrictions. -Need new wt. -RD will follow up within 3-4 days.
[2020-11-20 15:00] VITALS: BP 105/42
[2020-11-20 18:00] VITALS: BP 103/51
[2020-11-21 01:07] VITALS: BP 113/49
[2020-11-21 05:21] LABS: BASOPHILS 1.8 % (0-2); EOSINOPHILS 6.2 % (0-7); HEMATOCRIT 33.2 % (36.0-48.0); HEMOGLOBIN 10.8 g/dL (12-16); IMMATURE GRANULOCYTES 0.4 % (0-5); LYMPHOCYTE ABS# 0.78 10x3/uL (1.18-3.74); LYMPHOCYTES 13.7 % (15-50); MCH 30.6 pg (26.0-34.0); MCHC 32.5 g/dL (31.0-37.0); MCV 94.1 fL (80.0-100.0); NEUTROPHIL ABS# 3.41 10x3/uL (1.56-6.13); NEUTROPHILS 59.9 % (40-80); PLATELET COUNT 211 10x3/uL (130-400); RBC 3.53 10x6/uL (4.00-5.40); RDW 12.5 % (11.5-14.5); WBC 5.7 10x3/uL (4.8-10.8)
[2020-11-21 05:28] LABS: ANION GAP 9.5 mmol/L (8-16); CALCIUM 8.1 mg/dL (8.5-10.1); POTASSIUM - SERUM 4.5 mmol/L (3.5-5.1)
[2020-11-21 05:38] VITALS: BP 100/45
--- NOTE | 2020-11-21 07:50 | NUR ---
LYING IN BED, AWAKE/ALERT/ORIENTED X 1, T/R FREQ FOR C/C, INCONT OF B/B WITH USE OF INCONT PADS, PERICARE PROVIDED WITH DAILY BATH AND PRN, DENIES PAIN/OTHER DISCOMFORT AT THIS TIME, CALL LIGHT/PHONE/WATER WITHIN REACH, NO S/S OF ACUTE DISTRESS OBSERVED.
[2020-11-21 08:00] VITALS: BP 110/49
[2020-11-21 12:00] VITALS: BP 113/53
[2020-11-21 15:00] VITALS: BP 134/46
--- NOTE | 2020-11-21 17:50 | NUR ---
IV OUT, RESITED TO RFA BY ICE SKATING TEACHER X 1 ATTEMPT, CALL LIGHT/PHONE/WATER WITHIN REACH, NO S/S OF ACUTE DISTRESS OBSERVED.
--- NOTE | 2020-11-21 19:30 | NUR ---
PT IN BED, EYES CLOSED, RESP EVEN AND UNLABORED, NO DISTRESS NOTED, CL IN REACH, SR UP X 2.
[2020-11-21 22:14] VITALS: BP 109/53
[2020-11-22 01:00] VITALS: BP 128/46
--- NOTE | 2020-11-22 04:28 | NUR ---
I have reviewed this patient and I concur with the Shift Assessment completed by the Licensed Practical Nurse today this shift.
[2020-11-22 04:59] VITALS: BP 120/45
[2020-11-22 05:06] LABS: BASOPHILS 1.1 % (0-2); EOSINOPHILS 5.7 % (0-7); HEMATOCRIT 34.1 % (36.0-48.0); HEMOGLOBIN 10.9 g/dL (12-16); IMMATURE GRANULOCYTES 0.5 % (0-5); LYMPHOCYTE ABS# 0.64 10x3/uL (1.18-3.74); LYMPHOCYTES 9.7 % (15-50); MCH 30.2 pg (26.0-34.0); MCV 94.5 fL (80.0-100.0); MONOCYTES 16.5 % (2-11); NEUTROPHILS 66.5 % (40-80); PLATELET COUNT 224 10x3/uL (130-400); RBC 3.61 10x6/uL (4.00-5.40); RDW 12.4 % (11.5-14.5); WBC 6.6 10x3/uL (4.8-10.8)
[2020-11-22 05:20] LABS: ANION GAP 8.4 mmol/L (8-16); CALCIUM 8.8 mg/dL (8.5-10.1); CARBON DIOXIDE 31.7 mmol/L (21.0-32.0); CREATININE - SERUM 2.8 mg/dL (0.6-1.3); POTASSIUM - SERUM 5.1 mmol/L (3.5-5.1)
--- NOTE | 2020-11-22 07:20 | NUR ---
LYING IN BED WITH EYES CLOSED, ROUSES EASILY WITH VERBAL STIMULUS, T/R FREQ FOR C/C, FC PATENT AND DRAINING CLEAR DEREK COLORED URINE TO CDB IN AMPLE AMT, CATH CARE PROVIDED WITH DAILY BATH AND PRN, INCONT OF BOWEL WITH USE OF INCONT PADS, PERICARE PROVIDED WITH DAILY BATH AND PRN, DENIES PAIN/OTHER DISCOMFORT AT THIS TIME, CALL LIGHT/PHONE/WATER WITHIN REACH, NO S/S OF ACUTE DISTRESS OBSERVED.
[2020-11-22 07:56] VITALS: BP 145/57
[2020-11-22 11:33] VITALS: Ht 167.6 cm; Wt 72.6 kg
[2020-11-22 11:38] VITALS: BP 124/42
--- NOTE | 2020-11-22 13:23 | NUR ---
COLLECTED URINE SAMPLE, TAGGED/BAGGED/SENT TO LAB
[2020-11-22 14:29] LABS: BACTERIA FEW HPF (NONE SEEN); BILIRUBIN NEGATIVE (NEGATIVE); KETONE NEGATIVE (NEGATIVE); NITRITE NEGATIVE (NEGATIVE); SQUAMOUS EPITHELIAL 0-5 HPF (0-4); UROBILINOGEN NORMAL mg/dL (< 2)
--- NOTE | 2020-11-22 15:14 | NUR ---
REHAB PRESCREENING Rehab referral received and chart reviewed. Work is still in progress for this patient. Rehab will continue to follow and plan for admission if patient is agreeable and when her physicians feel she is appropriate for discharge. Thank you for this referral! Hoa Cash, DROP BOARD MAN Rehab PD
[2020-11-22 15:55] VITALS: BP 141/46
--- NOTE | 2020-11-22 19:30 | NUR ---
PT IN BED, AAO X 3, RESP EVEN AND UNLABORED, NO DISTRESS NOTED, CL IN REACH, SR UP X 2.
[2020-11-22 21:34] VITALS: BP 142/52
--- NOTE | 2020-11-22 22:48 | MORECARE ---
CASE MANAGEMENT DISCHARGE SUMMARY PATIENT: FIDE TORRES UNIT: [id number] ADM DATE: 11/11/20 AGE: 89 : 32 SEX: F ROOM/BED: D.0438 AUTHOR: JOSUÉ,DOC PHYSICIAN: REFERRING PHYSICIAN: EVA HUERTA MD DATE OF SERVICE: 11/22/20 Discharge Plan Patient Name: FIDE TORRES Facility: [facility]:[place] : 1930 Planned Disposition: Inpatient Rehab Anticipated Discharge Date: Discharge Date: Expected LOS: Initial Reviewer: [email or web address] Initial Review Date: 11/11/2020 Generated: 11/22/20 11:48 pm Comments DCP- Discharge Planning Updated by [email or web address]: Domonique Candelaria on 11/22/20 9:[address] Patient Name: FIDE TORRES Admission Status: ER Accout number: [id number] Admission Date: 11-11-2020 : 1930 Admission Diagnosis:VOMITING, UNSPECIFIED Attending: EVA HUERTA Current LOS: 11 Anticipated DC Date: Planned Disposition: Inpatient Rehab Primary Insurance: MEDICARE A & B Discharge Planning Comments: CM met with patient to complete initial dc planning assessment. CM educated patient on the CM role and verbal consent given by patient to complete assessment. Patient lives at home with family. Patient is independent. At discharge patient plans to return home and feels this is a safe discharge. CM discussed availability of home health, rehab services, and medical equipment. Patient agrees to Inpatient Rehab for strengthening prior to d/c home. KITA completed. Patient will have family to transport home. Patient denied known discharge needs at this time. CM will continue to follow and will assist as needed with dc plans/needs. Spinner Tender: Domonique Candelaria DCPIA - Discharge Planning Initial Assessment Updated by [email or web address]: Domonique Candelaria on 11/22/20 10:47 pm * Is the patient Alert and Oriented? Yes * How many steps to enter\exit or inside your home? 4-5 * PCP [facility] * Pharmacy [facility] * Preadmission Environment Home with Family * ADLs Independent * Other Equipment CANE, WALKER, HOME 02 @ HS, NEBULIZER * List name and contact numbers for known caregivers / representatives who currently or will assist patient after discharge: THOMAS BROTHERS - DAUGHTER - [phone] * Verbal permission to speak to the caregivers and representatives has been obtained from the patient. Yes * Community resources currently utilized None * Additional services required to return to the preadmission environment? No * Can the patient safely return to the preadmission environment? Yes * Has this patient been hospitalized within the prior 30 days at any hospital? No Coverage Notice Reviewer: [id number] Beto Candelaria Notice Issued Date-Time: 11/21/2020 11:11 Notice Type: Patient Choice Letter Notice Delivered To: Patient Relationship to Patient: Self Flower Grower Name: Delivery Method: HAND - Hand Delivered Angela Days: Prior Verbal Notification: Recipient Understood Notice: Yes Recipient Signature: Yes Med Rec Note Co-signed by Attending: Coverage Notice Comment: inpatient rehab [facility] Patient Name: FIDE TORRES Page [phone] at 2248 All edits/amendments must be made on the electronic document DICTATION DATE: 11/22/202247 POSTBED STITCHER: ANGELIC 11/22/202247 RPT#: [id number] DC DATE: STATUS: ADM IN [facility] [address] [place] [address] END OF REPORT
[2020-11-23 00:40] VITALS: BP 134/68
--- NOTE | 2020-11-23 04:07 | NUR ---
I have reviewed this patient and I concur with the Shift Assessment completed by the Licensed Practical Nurse today this shift.
[2020-11-23 06:05] LABS: BASOPHILS 1.5 % (0-2); EOSINOPHILS 4.3 % (0-7); HEMATOCRIT 34.7 % (36.0-48.0); HEMOGLOBIN 11.4 g/dL (12-16); IMMATURE GRANULOCYTES 0.6 % (0-5); LYMPHOCYTE ABS# 1.07 10x3/uL (1.18-3.74); LYMPHOCYTES 13.4 % (15-50); MCH 30.6 pg (26.0-34.0); MCHC 32.9 g/dL (31.0-37.0); MEAN PLATELET VOLUME 10.9 fL (7.4-10.4); MONOCYTES 7.6 % (2-11); NEUTROPHIL ABS# 5.81 10x3/uL (1.56-6.13); NEUTROPHILS 72.6 % (40-80); PLATELET COUNT 257 10x3/uL (130-400); RBC 3.73 10x6/uL (4.00-5.40); RDW 12.4 % (11.5-14.5)
[2020-11-23 06:06] VITALS: BP 124/62
[2020-11-23 06:20] LABS: ANION GAP 10.2 mmol/L (8-16); CALCIUM 8.9 mg/dL (8.5-10.1); CARBON DIOXIDE 29.5 mmol/L (21.0-32.0); CREATININE - SERUM 2.4 mg/dL (0.6-1.3); POTASSIUM - SERUM 4.7 mmol/L (3.5-5.1)
--- NOTE | 2020-11-23 07:20 | NUR ---
LYING IN BED, AWAKE/ALERT/CONFUSED, T/R FREQ FOR C/C, FC PATENT AND DRAINING CLEAR YELLOW URINE TO CDB IN AMPLE AMT, CATH CARE PROVIDED WITH DAILY BATH AND PRN, INCONT OF BOWEL WITH USE OF INCONT PADS, PERICARE PROVIDED WITH DAILY BATH AND PRN, CALL LIGHT/PHONE/WATER WITHIN REACH, NO S/S OF ACUTE DISTRESS OBSERVED.
[2020-11-23 08:02] VITALS: BP 169/67
--- NOTE | 2020-11-23 11:03 | MORECARE ---
CASE MANAGEMENT DISCHARGE SUMMARY PATIENT: FIDE TORRES UNIT: [id number] ADM DATE: 11/11/20 AGE: 89 : 32 SEX: F ROOM/BED: D.1462 AUTHOR: JOSUÉ,DOC PHYSICIAN: REFERRING PHYSICIAN: EVA HUERTA MD DATE OF SERVICE: 11/23/20 Discharge Plan Patient Name: FIDE TORRES Facility: [facility]:[place] : 1930 Planned Disposition: Inpatient Rehab Anticipated Discharge Date: Discharge Date: Expected LOS: Initial Reviewer: [email or web address] Initial Review Date: 11/11/2020 Generated: 11/23/20 12:02 pm Comments DCP- Discharge Planning Updated by [email or web address]: Prema Hill on 11/23/20 9:[address] Covid RNA ordered for possible IP rehab placement per Hoa's request in IP Rehab at [facility]. DCP- Discharge Planning Updated by [id number]: Domonique Candelaria on 11/22/20 9:[address] Patient Name: FIDE TORRES Admission Status: ER Accout number: [id number] Admission Date: 11-11-2020 : 1930 Admission Diagnosis:VOMITING, UNSPECIFIED Attending: EVA HUERTA Current LOS: 11 Anticipated DC Date: Planned Disposition: Inpatient Rehab Primary Insurance: MEDICARE A & B Discharge Planning Comments: CM met with patient to complete initial dc planning assessment. CM educated patient on the CM role and verbal consent given by patient to complete assessment. Patient lives at home with family. Patient is independent. At discharge patient plans to return home and feels this is a safe discharge. CM discussed availability of home health, rehab services, and medical equipment. Patient agrees to Inpatient Rehab for strengthening prior to d/c home. KITA completed. Patient will have family to transport home. Patient denied known discharge needs at this time. CM will continue to follow and will assist as needed with dc plans/needs. Geothermal Field Technician: Domonique Candelaria DCPIA - Discharge Planning Initial Assessment Updated by [email or web address]: Domonique Candelaria on 11/22/20 10:47 pm * Is the patient Alert and Oriented? Yes * How many steps to enter\exit or inside your home? 4-5 * PCP [facility] * Pharmacy [facility] * Preadmission Environment Home with Family * ADLs Independent * Other Equipment CANE, WALKER, HOME 02 @ HS, NEBULIZER * List name and contact numbers for known caregivers / representatives who currently or will assist patient after discharge: THOMAS BROTHERS - DAUGHTER - [phone] * Verbal permission to speak to the caregivers and representatives has been obtained from the patient. Yes * Community resources currently utilized None * Additional services required to return to the preadmission environment? No * Can the patient safely return to the preadmission environment? Yes * Has this patient been hospitalized within the prior 30 days at any hospital? No Coverage Notice Reviewer: [id number] Beto Candelaria Notice Issued Date-Time: 11/21/2020 11:11 Notice Type: Patient Choice Letter Notice Delivered To: Patient Relationship to Patient: Self Rock Duster Name: Delivery Method: HAND - Hand Delivered Angela Days: Prior Verbal Notification: Recipient Understood Notice: Yes Recipient Signature: Yes Med Rec Note Co-signed by Attending: Coverage Notice Comment: inpatient rehab [facility] Last DP export: 11/22/20 9:48 pm Patient Name: FIDE TORRES Page [phone] at 1103 All edits/amendments must be made on the electronic document DICTATION DATE: 11/23/201101 TENTS ASSEMBLER: ANGELIC 11/23/201101 RPT#: [id number] DC DATE: STATUS: ADM IN [facility] [address] [place] [address] END OF REPORT
[2020-11-23 11:10] VITALS: BP 176/70
[2020-11-23 11:13] LABS: CREATININE - URINE 45.1 mg/dL (30-125); PRO/CRE RATIO URINE 0.5 mg/g; PROTEIN - URINE 23.8 mg/dL (0.0-11.9)
--- NOTE | 2020-11-23 11:14 | NUR ---
Nutrition Follow-up: Fair PO intake. MD reports plans to advance diet. Noted plans for IP rehab. Diet: Full Liquid, Ensure BID PO intake: 50% x 3 yesterday No new wt; last wt: 160# (11/13) Labs noted: Na 132, BUN 51, Cre 2.4, GFR 20, Glu 118 Meds noted: Micro K, Florajen, Nystatin, Zofran, electrolyte protocol -Advance diet per MD. -Encourage PO intake and honor food preferences within diet restrictions. -Need new wt. -RD will follow up within 4-5 days.
--- NOTE | 2020-11-23 11:49 | NUR ---
PCR SWAB TAGGED/BAGGED/SENT TO LAB
--- NOTE | 2020-11-23 11:55 | NUR ---
OBTAINED URINE SPECIMEN/TAGGED/BAGGED/SENT TO LAB
--- NOTE | 2020-11-23 14:15 | NUR ---
PCR SWAB OBTAINED/TAGGED/BAGGED/SENT TO LAB
[2020-11-23 15:14] VITALS: BP 171/74
[2020-11-23 20:50] VITALS: BP 139/58
[2020-11-24 04:07] VITALS: BP 128/65
--- NOTE | 2020-11-24 05:00 | NUR ---
I have reviewed this patient and I concur with the Shift Assessment completed by the Licensed Practical Nurse today this shift.
--- NOTE | 2020-11-24 07:15 | NUR ---
PT LYING IN BED WITH EYES CLOSED. RAISES EASILY TO VERBAL STIMULI. RESP EVEN AND UNLABORED. DENIES PAIN OR ANY NEEDS AT THIS TIME. CALL LIGHT IN REACH. BED IN LOWEST POSITION. SIDE RAILS X2
[2020-11-24 08:00] VITALS: BP 138/64
--- NOTE | 2020-11-24 11:03 | NUR ---
REHAB PRESCREENING Rehab has plans to admit this patient today if her physician feels she is appropriate. She will need to have her diet advanced and be able to tolerate prior to rehab admission. Thank you! Hoa Cash, ACIDIZER Rehab PD
[2020-11-24 11:11] LABS: ANION GAP 8.3 mmol/L (8-16); CALCIUM 8.8 mg/dL (8.5-10.1); CARBON DIOXIDE 32.2 mmol/L (21.0-32.0); CREATININE - SERUM 2.3 mg/dL (0.6-1.3); POTASSIUM - SERUM 4.5 mmol/L (3.5-5.1)
[2020-11-24 12:00] VITALS: BP 124/60
--- NOTE | 2020-11-24 12:22 | NUR ---
I have reviewed this patient and I concur with the Shift Assessment completed by the Licensed Practical Nurse today this shift.
[2020-11-24 15:00] VITALS: BP 122/55
--- NOTE | 2020-11-24 19:57 | NUR ---
RECEIVED REPORT, WILL ASSUME CARE OF PT, COMMUNICATIONS PROGRAMMER ASSISTED WITH CLEAN UP, WAS TOLD PT HAD VOMIT, GAVE ZOFRAN ORDERED, BED IS LOW, SRX2, CALL LIGHT IN REACH, WILL CONTINUE PLAN OF CARE
[2020-11-24 21:54] VITALS: BP 117/48
[2020-11-25 00:52] VITALS: BP 127/63
[2020-11-25 05:18] VITALS: BP 139/53
[2020-11-25 05:52] LABS: BASOPHILS 1.2 % (0-2); EOSINOPHILS 2.9 % (0-7); HEMATOCRIT 33.1 % (36.0-48.0); HEMOGLOBIN 10.9 g/dL (12-16); IMMATURE GRANULOCYTES 0.3 % (0-5); LYMPHOCYTE ABS# 0.77 10x3/uL (1.18-3.74); LYMPHOCYTES 11.2 % (15-50); MCH 30.7 pg (26.0-34.0); MCHC 32.9 g/dL (31.0-37.0); MCV 93.2 fL (80.0-100.0); MEAN PLATELET VOLUME 10.4 fL (7.4-10.4); MONOCYTES 15.9 % (2-11); NEUTROPHIL ABS# 4.73 10x3/uL (1.56-6.13); NEUTROPHILS 68.5 % (40-80); PLATELET COUNT 291 10x3/uL (130-400); RBC 3.55 10x6/uL (4.00-5.40); RDW 12.3 % (11.5-14.5); WBC 6.9 10x3/uL (4.8-10.8)
[2020-11-25 06:07] LABS: ANION GAP 8.5 mmol/L (8-16); CALCIUM 8.7 mg/dL (8.5-10.1); CARBON DIOXIDE 31.9 mmol/L (21.0-32.0); CREATININE - SERUM 2.4 mg/dL (0.6-1.3); POTASSIUM - SERUM 4.4 mmol/L (3.5-5.1)
[2020-11-25 07:00] VITALS: BP 145/64
[2020-11-25] MEDS ORDERED: K-TAB10 MEQ PO (12:31)
[2020-11-25] MEDS ORDERED: THERMOTABS 1 GM1 GM PO (12:32)
[2020-11-25] MEDS ORDERED: HYDRALAZINE HCL25 MG PO (13:13)
--- NOTE | 2020-11-27 07:47 | MORECARE ---
CASE MANAGEMENT DISCHARGE SUMMARY PATIENT: FIDE TORRES UNIT: [id number] ADM DATE: 11/11/20 AGE: 89 : 32 SEX: F ROOM/BED: D.6544 AUTHOR: JOSUÉ,DOC PHYSICIAN: REFERRING PHYSICIAN: EVA HUERTA MD DATE OF SERVICE: 11/27/20 Discharge Plan Patient Name: FIDE TORRES Facility: [facility]:[place] : 1930 Planned Disposition: Inpatient Rehab Anticipated Discharge Date: Discharge Date: 11/25/2020 Expected LOS: Initial Reviewer: [email or web address] Initial Review Date: 11/11/2020 Generated: 11/27/20 8:47 am Comments DCP- Discharge Planning Updated by [email or web address]: Prema Hill on 11/23/20 9:[address] Covid RNA ordered for possible IP rehab placement per Hoa's request in IP Rehab at [facility]. DCP- Discharge Planning Updated by [email or web address]: Domonique Candelaria on 11/22/20 9:[address] Patient Name: FIDE TORRES Admission Status: ER Accout number: [id number] Admission Date: 11-11-2020 : 1930 Admission Diagnosis:VOMITING, UNSPECIFIED Attending: EVA HUERTA Current LOS: 11 Anticipated DC Date: Planned Disposition: Inpatient Rehab Primary Insurance: MEDICARE A & B Discharge Planning Comments: CM met with patient to complete initial dc planning assessment. CM educated patient on the CM role and verbal consent given by patient to complete assessment. Patient lives at home with family. Patient is independent. At discharge patient plans to return home and feels this is a safe discharge. CM discussed availability of home health, rehab services, and medical equipment. Patient agrees to Inpatient Rehab for strengthening prior to d/c home. KITA completed. Patient will have family to transport home. Patient denied known discharge needs at this time. CM will continue to follow and will assist as needed with dc plans/needs. Services Tech: Domonique Candelaria DCPIA - Discharge Planning Initial Assessment Updated by [email or web address]: Domonique Candelaria on 11/22/20 10:47 pm * Is the patient Alert and Oriented? Yes * How many steps to enter\exit or inside your home? 4-5 * PCP [facility] * Pharmacy [facility] * Preadmission Environment Home with Family * ADLs Independent * Other Equipment CANE, WALKER, HOME 02 @ HS, NEBULIZER * List name and contact numbers for known caregivers / representatives who currently or will assist patient after discharge: THOMAS BROTHERS - GINA - [phone] * Verbal permission to speak to the caregivers and representatives has been obtained from the patient. Yes * Community resources currently utilized None * Additional services required to return to the preadmission environment? No * Can the patient safely return to the preadmission environment? Yes * Has this patient been hospitalized within the prior 30 days at any hospital? No Coverage Notice Reviewer: [id number] Beto Candelaria Notice Issued Date-Time: 11/21/2020 11:11 Notice Type: Patient Choice Letter Notice Delivered To: Patient Relationship to Patient: Self Soup Mixer Name: Delivery Method: HAND - Hand Delivered Angela Days: Prior Verbal Notification: Recipient Understood Notice: Yes Recipient Signature: Yes Med Rec Note Co-signed by Attending: Coverage Notice Comment: inpatient rehab [facility] Reviewer: [email or web address] Beto Dhillon Notice Issued Date-Time: 11/25/2020 13:30 Notice Type: IM Discharge Notice Notice Delivered To: Patient Relationship to Patient: Self Soup Mixer Name: Delivery Method: HAND - Hand Delivered Angela Days: Prior Verbal Notification: Recipient Understood Notice: Yes Recipient Signature: Yes Med Rec Note Co-signed by Attending: Coverage Notice Comment: DC IMM delivered, explained, signed by the patient, and placed in chart. Last DP export: 11/23/20 10:03 am Patient Name: FIDE TORRES Page [phone] at 0747 All edits/amendments must be made on the electronic document DICTATION DATE: 11/27/20746 ICT EDUCATOR: ANGELIC 11/27/20746 RPT#: [id number] DC DATE:11/25/20 STATUS: DIS IN [facility] [address] [place] [address] END OF REPORT
== END 2020-11-25 14:14 | DRG 291 ==
LOC: D.ER 19:06 → D.M2 20:14 → D.EDHOLD 20:14 → D.M2 11-13 21:29
PROVIDERS: Family Medicine; Internal Medicine; ADMIT Family Medicine; ATTEND Family Medicine
DX: I13.0 Hypertensive heart and chronic kidney disease with heart failure and stage 1 through stage 4 chronic kidney disease, or unspecified chronic kidney disease (principal); I50.33 Acute on chronic diastolic (congestive) heart failure; J18.9 Pneumonia, unspecified organism; N39.0 Urinary tract infection, site not specified; N17.9 Acute kidney failure, unspecified; E87.1 Hypo-osmolality and hyponatremia; N18.9 Chronic kidney disease, unspecified; J44.9 Chronic obstructive pulmonary disease, unspecified; I25.10 Atherosclerotic heart disease of native coronary artery without angina pectoris; R11.2 Nausea with vomiting, unspecified; R19.7 Diarrhea, unspecified; R42 Dizziness and giddiness; I71.9 Aortic aneurysm of unspecified site, without rupture; E11.22 Type 2 diabetes mellitus with diabetic chronic kidney disease; R00.1 Bradycardia, unspecified; K11.7 Disturbances of salivary secretion

== ENCOUNTER 2020-11-24 16:08 | Inpatient (IN) | payer MEDICARE, BC ==
[~2020-11-24] VITALS: Ht 167.6 cm; Wt 53.1 kg
[2020-11-25] MEDS ORDERED: K-TAB10 MEQ PO (12:31)
[2020-11-25] MEDS ORDERED: THERMOTABS 1 GM1 GM PO (12:32)
[2020-11-25] MEDS ORDERED: HYDRALAZINE HCL25 MG PO (13:13)
--- NOTE | 2020-11-25 14:53 | NUR ---
RECIEVED FROM ACUTE MEDICAL FLOOR PER WC TO ROOM 1110.ORIENTED TO ROOM AND SURROUNDINGS.CL IN REACH.O2 ON AT 2L/NC.
[2020-11-25 15:26] VITALS: BP 119/38; BMI 19.0
[2020-11-25 17:18] LABS: NITRITE NEGATIVE (NEGATIVE)
[2020-11-25 17:19] LABS: BILIRUBIN NEGATIVE (NEGATIVE); KETONE NEGATIVE (NEGATIVE); UROBILINOGEN NORMAL mg/dL (< 2)
[2020-11-25 17:23] LABS: BACTERIA FEW HPF (NONE SEEN); SQUAMOUS EPITHELIAL 0-5 HPF (0-4)
--- NOTE | 2020-11-25 17:44 | NUR ---
URINE COLLECTED. TAKEN UP TO LAB
--- NOTE | 2020-11-25 20:00 | NUR ---
PATIENT RECEIVED LAYING IN BED. ASSESSMENT & VITAL SIGNS DONE. NO C/O PAIN OR DISTRESS. MOORE RELEASED. YELLOW COLOR URINE IN BAG. BED LOW. ALARM ON. CALL LIGHT WITHIN REACH. WILL CONTINUE TO MONITOR.
[2020-11-25 21:00] VITALS: BP 141/54
--- NOTE | 2020-11-26 05:10 | NUR ---
I have reviewed this patient and I concur with the Shift Assessment completed by the Licensed Practical Nurse today this shift.
--- NOTE | 2020-11-26 06:07 | NUR ---
PATIENT MOORE DC'D 600 CC OF YELLOW COLOR URINE. PATIENT TOLERATED IT WELL. PADDING PLACED UNDER PATIENT'S BRIEF. BED LOW. CALL LIGHT WITHIN REACH. WILL CONTINUE TO MONITOR.
[2020-11-26 10:58] LABS: BASOPHILS 1.3 % (0-2); EOSINOPHILS 2.9 % (0-7); IMMATURE GRANULOCYTES 0.3 % (0-5); LYMPHOCYTE ABS# 0.63 10x3/uL (1.18-3.74); LYMPHOCYTES 9.3 % (15-50); MCH 30.6 pg (26.0-34.0); MCHC 32.3 g/dL (31.0-37.0); MCV 94.8 fL (80.0-100.0); MEAN PLATELET VOLUME 10.3 fL (7.4-10.4); MONOCYTES 13.5 % (2-11); NEUTROPHIL ABS# 4.94 10x3/uL (1.56-6.13); NEUTROPHILS 72.7 % (40-80); PLATELET COUNT 289 10x3/uL (130-400); RBC 3.27 10x6/uL (4.00-5.40); RDW 12.4 % (11.5-14.5); WBC 6.8 10x3/uL (4.8-10.8)
[2020-11-26 11:14] LABS: ALBUMIN 3.1 g/dL (3.4-5.0); ANION GAP 6.4 mmol/L (8-16); BILIRUBIN - TOTAL 0.6 mg/dL (0.2-1.3); CALCIUM 8.2 mg/dL (8.5-10.1); CARBON DIOXIDE 30.9 mmol/L (21.0-32.0); CREATININE - SERUM 2.2 mg/dL (0.6-1.3); POTASSIUM - SERUM 4.3 mmol/L (3.5-5.1)
[2020-11-26 13:28] VITALS: BP 135/58
--- NOTE | 2020-11-26 15:42 | NUR ---
GOT HER UP TO THE BEDSIDE COMMODE, SHE VOIDED 200 CC. SHE STAETS "I FEEL BETTER SINCE I MOVED AROUND". I CLEANED HER BOTTOM AND APPLIED CREAM, APPLIED A MEPILEX TO HER SPINAL-MID BACK, AND BOTH HEELS AND ANKLE BONES. SHE HAS A LARGE GREEN BRUISE ON HER LEFT HIP, AND MULTIPLE BRUISES ON BOTH LOWER LEGS. SHE HAS SCABS AND SCRATCHES ON HER HEELS AND ANKLE BONES. SHE IS WEARING 2 LITERS NC. I TURNED HER TO THE RIGHT SIDE. THE CALL LIGHT IS WITHIN REACH. I CALLED HER DAUGHTER FOR HER, SHE IS TALKING TO HER NOW.
[2020-11-26 19:00] VITALS: BP 117/35
--- NOTE | 2020-11-26 20:20 | NUR ---
PATIENT RECEIVED LAYING IN LOW BED. ASSESSMENT & VITAL SIGNS DONE. BED LOW. CALL LIGTH WITHIN REACH. WILL CONTINUE TO MONITOR.
--- NOTE | 2020-11-27 00:33 | NUR ---
I have reviewed this patient and I concur with the Shift Assessment completed by the Licensed Practical Nurse today this shift.
--- NOTE | 2020-11-27 02:29 | NUR ---
PATIENT EYES CLOSED. RESPIRATIONS 18 & EVEN. BEDSIDE TABLE, CALL LIGHT WITHIN REACH. WILL CONTINUE TO MONITOR.
--- NOTE | 2020-11-27 07:37 | NUR ---
PT RESTING IN BED WITH EYES OPEN CALL LIGTH IN REACH NO PROBLEMS WILL MONITER
[2020-11-27 07:51] VITALS: BP 131/55
[2020-11-27 09:12] LABS: BASOPHILS 1.3 % (0-2); EOSINOPHILS 4.1 % (0-7); HEMATOCRIT 32.3 % (36.0-48.0); HEMOGLOBIN 10.3 g/dL (12-16); IMMATURE GRANULOCYTES 0.4 % (0-5); LYMPHOCYTE ABS# 0.89 10x3/uL (1.18-3.74); LYMPHOCYTES 15.9 % (15-50); MCH 29.9 pg (26.0-34.0); MCHC 31.9 g/dL (31.0-37.0); MCV 93.9 fL (80.0-100.0); MEAN PLATELET VOLUME 10.4 fL (7.4-10.4); MONOCYTES 14.5 % (2-11); NEUTROPHIL ABS# 3.58 10x3/uL (1.56-6.13); NEUTROPHILS 63.8 % (40-80); PLATELET COUNT 333 10x3/uL (130-400); RBC 3.44 10x6/uL (4.00-5.40); RDW 12.3 % (11.5-14.5); WBC 5.6 10x3/uL (4.8-10.8)
[2020-11-27 09:13] LABS: ALBUMIN 3.3 g/dL (3.4-5.0); ANION GAP 9.1 mmol/L (8-16); BILIRUBIN - TOTAL 0.63 mg/dL (0.2-1.3); CALCIUM 8.4 mg/dL (8.5-10.1); CARBON DIOXIDE 29.1 mmol/L (21.0-32.0); CREATININE - SERUM 2.2 mg/dL (0.6-1.3); MAGNESIUM - SERUM 2.7 mg/dL (1.8-2.4); POTASSIUM - SERUM 4.2 mmol/L (3.5-5.1); PROTEIN - SERUM 6.1 g/dL (6.4-8.2)
[2020-11-27 13:09] VITALS: Ht 167.6 cm; Wt 53.1 kg
[2020-11-27 20:00] VITALS: BP 128/74
--- NOTE | 2020-11-28 01:41 | NUR ---
ASSISTED PT TO THE BEDSIDE COMMODE TO VOID AND THEN ASSISTED BACK TO BED. SHE USED HER INCENTIVE SPIROMETER 7 TIMES AND GOT UP TO ABOUT 750. SHE GETS SHORT OF BREATH WITH EXERTION. LUNG SOUNDS DIMINISHED. SHE IS ON 2L NASAL CANNULA. SHE DENIES PAIN OR NEEDS AT THIS TIME. HER BED IS LOW, BED ALARM ON AND CALL LIGHT IS WITHIN REACH.
[2020-11-28 06:10] LABS: ANION GAP 10.5 mmol/L (8-16); BILIRUBIN - TOTAL 0.46 mg/dL (0.2-1.3); CALCIUM 8.1 mg/dL (8.5-10.1); CARBON DIOXIDE 24.8 mmol/L (21.0-32.0); CREATININE - SERUM 2.2 mg/dL (0.6-1.3); POTASSIUM - SERUM 4.3 mmol/L (3.5-5.1); PROTEIN - SERUM 5.4 g/dL (6.4-8.2)
--- NOTE | 2020-11-28 07:26 | NUR ---
PT RESTING IN BED WITH EYES OPEN CALL LIGHT IN REACH NO PROBLEMS WILL MONITER
[2020-11-28 08:06] VITALS: BP 125/47
--- NOTE | 2020-11-28 18:39 | NUR ---
PT RESTING IN BED WITH EYES OPEN CALL LIGHT IN REACH WILL MONITER
--- NOTE | 2020-11-28 19:08 | NUR ---
ASSISTED PT TO AND FROM BATHROOM VIA WHEELCHAIR. MINIMAL ASSISTANCE. PT BACK IN BED. CL IN REACH. DENIES FURTHER NEEDS. RESP EVEN AND UNLABORED. LUNGS CLEAR. BOWEL ACTIVE X4. A/O X4. BED ALARM ON. CPOC
[2020-11-28 20:15] VITALS: BP 141/59
--- NOTE | 2020-11-29 01:57 | NUR ---
I have reviewed this patient and I concur with the Shift Assessment completed by the Licensed Practical Nurse today this shift.
[2020-11-29 07:49] VITALS: BP 149/53
[2020-11-29 08:24] LABS: ALBUMIN 3.2 g/dL (3.4-5.0); ANION GAP 11.4 mmol/L (8-16); BILIRUBIN - TOTAL 0.43 mg/dL (0.2-1.3); CALCIUM 8.1 mg/dL (8.5-10.1); CARBON DIOXIDE 24.2 mmol/L (21.0-32.0); CREATININE - SERUM 2.1 mg/dL (0.6-1.3); POTASSIUM - SERUM 4.6 mmol/L (3.5-5.1); PROTEIN - SERUM 5.7 g/dL (6.4-8.2)
--- NOTE | 2020-11-29 13:08 | NUR ---
CARE TEAM MEETING: PATIENT IS PROGRESSING IN THERAPY AND WILL BE RA AT NEXT MEETING. TENATIVE DC DATE IS 12/12/20. WILL CONTINUE TO FOLLOW WITH PATIENT.
--- NOTE | 2020-11-29 13:40 | NUR ---
Nutrition Follow-up: Diet: Diabetic + Glucerna TID, 1200mL fluid restriction PO intake: ~72% average x last 6 meals. Patient was asleep at time of RD visit so interview with deffered at this time. Noted in MD notes that patient did not have +N/V this AM when he went to see her. Last BM: 11/25/20 Wt: 117# (11/27/20); Admit Wt: 117# (11/25/20) Meds noted: protonix, NaCl, micro-k, zofran (PRN) Labs noted: NA 134(L), BUN 32(H), Cr 2.1(H), GFR 23(L) Skin: stage II PU to coccyx Recommend continue current PO diet. Will discontinue Glucerna 2/2 high protein content and GFR being so low currently. RD will follow-up 12/04/20.
--- NOTE | 2020-11-29 15:35 | NUR ---
PATIENT ADMITS TO REHAB FROM ACUTE FLOOR. HER PCP IS DR. HUERTA. DME AT HOME IS A CANE, WALKER , O2 AND A NEBULIZER. DISCHARGE PLANS ARE FOR HER TO RETURN TO HER HOME. WILL CONTINUE TO FOLLOW WITH PATIENT.
--- NOTE | 2020-11-29 19:10 | NUR ---
RECIEVED PT SITTING UP IN BED WATCHING TV. CL IN REACH. DENIES NEEDS AT THIS TIME. BED IN LOW SIDE RAILS X2. A/O X4. LUNGS DIMINISHED. O2 ON 2L VIA NC. BOWEL ACTIVE X4. RESP EVEN AND UNLABORED. CPOC
[2020-11-29 20:35] VITALS: BP 144/35
[2020-11-30 07:08] LABS: ALBUMIN 2.9 g/dL (3.4-5.0); ANION GAP 9.5 mmol/L (8-16); BILIRUBIN - TOTAL 0.39 mg/dL (0.2-1.3); CARBON DIOXIDE 23.9 mmol/L (21.0-32.0); CREATININE - SERUM 1.9 mg/dL (0.6-1.3); POTASSIUM - SERUM 4.4 mmol/L (3.5-5.1); PROTEIN - SERUM 5.5 g/dL (6.4-8.2)
[2020-11-30 08:00] VITALS: BP 138/51
--- NOTE | 2020-11-30 09:40 | NUR ---
SHE IS SETTING UP IN THE WHEELCHAIR. SHE TOOK HER MEDICATIONS WITHOUT ANY PROBLEMS. SHE IS WEARING 2 LITERS NC. SHE IS FORGETFUL, THE CALL LIGHT IS WITHIN REACH AND THE CHAIR ALARM IS ON.
--- NOTE | 2020-11-30 13:40 | NUR ---
PAPER WORK GONE OVER WITH, QUESTIONS ANSWERED. WRITTEN PRESCRIPTION FOR [facility] GIVEN TO THE PATIENT, WELL FOLLOW UP APPOINTMENTS. TAKEN OUT VIA WHEELCHAIR.
[2020-11-30 20:00] VITALS: BP 128/41
--- NOTE | 2020-11-30 23:07 | NUR ---
ASSISTED PT TO THE BATHROOM AND BACK TO BED. SHE GETS SHORT OF BREATH WITH EXERTION. SHE IS ON 2L NASAL CANNULA. 02 SAT AFTER GOING TO THE RESTROOM AND GETTING BACK IN BED IS 95%. ONCE SHE GETS INTO BED HER SHORTNESS OF BREATH DECREASES AND O2 SAT IS 98%. SHE IS SCRATCHING HER ARMS AND LEGS AND STATES THEY FEEL ITCHY. HER SKIN IS DRY AND FLAKY. LOTION APPLIED TO ALL EXTREMITIES AND SHE SAID IT FEELS BETTER. SHE DENIES FURTHER NEEDS OR PAIN. BED ALARM IS ON, BED IS LOW AND CALL LIGHT IS WITHIN REACH.
[2020-12-01 07:10] LABS: BASOPHILS 0.4 % (0-2); EOSINOPHILS 2.8 % (0-7); HEMATOCRIT 28.6 % (36.0-48.0); HEMOGLOBIN 9.3 g/dL (12-16); IMMATURE GRANULOCYTES 0.3 % (0-5); LYMPHOCYTE ABS# 0.75 10x3/uL (1.18-3.74); LYMPHOCYTES 10.2 % (15-50); MCH 30.3 pg (26.0-34.0); MCHC 32.5 g/dL (31.0-37.0); MCV 93.2 fL (80.0-100.0); MONOCYTES 8.4 % (2-11); NEUTROPHIL ABS# 5.74 10x3/uL (1.56-6.13); NEUTROPHILS 77.9 % (40-80); RBC 3.07 10x6/uL (4.00-5.40); RDW 12.9 % (11.5-14.5); WBC 7.4 10x3/uL (4.8-10.8)
[2020-12-01 07:20] VITALS: BP 139/48
[2020-12-01 07:23] LABS: ALBUMIN 2.9 g/dL (3.4-5.0); ANION GAP 11.5 mmol/L (8-16); BILIRUBIN - TOTAL 0.36 mg/dL (0.2-1.3); CALCIUM 8.1 mg/dL (8.5-10.1); CARBON DIOXIDE 24.2 mmol/L (21.0-32.0); POTASSIUM - SERUM 4.7 mmol/L (3.5-5.1); PROTEIN - SERUM 5.5 g/dL (6.4-8.2)
[2020-12-01 07:24] LABS: PLATELET COUNT 254 10x3/uL (130-400)
--- NOTE | 2020-12-01 08:40 | NUR ---
SHE IS SETTING UP IN THE WHEELCHAIR, HAS BEEN UP WITH THERAPY THIS MORNING. MEMORY IS MORE CLEAN THIS MORNING, THAN YESTERDAY. SHE STATES THAT HER HEAD "FEELS BETTER", NO DIZZINESS. TOOK HER MEDICATIONS WITHOUT ANY PROBLEMS. THE CALL LIGHT IS WITHIN REACH.
--- NOTE | 2020-12-01 11:05 | NUR ---
OT REPORTED THAT SHE WAS SOB WITH EXERCISE. O2 SAT WAS 94% ON 4 LITERS, PULSE 45. PUSLE CAME UP TO 58 THEN BACK TO 45. BP 129/33. SHE WAS TAKEN TO HER ROOM TO LIE DOWN. SHE STATES "I FEEL WEAK" SHE SAID SHE HAD A DREAM LAST NIGHT THAT SHE WAS DYING. SHE IS TALKING, THE CALL LIGHT IS WITHIN REACH AND THE BED ALARM IN ON.
--- NOTE | 2020-12-01 13:00 | NUR ---
SHE IS FEELING BETTER. NEW MEPILEX TO BOTH HEELS. THE LEFT HEEL HAS A DEEP TISSUE INJURY, AND A SMALL ABRASION ON THE ANKLE BONE. THE GREAT TOE HAS A SMALL RED ABRASION. THE RIGHT HEEL HAS A DRY PLACE. HELP TO THE BEDSIDE COMMODE. THE CALL LIGHT IS WITHIN REACH AND THE BED ALARM IS ON.
[2020-12-01 20:05] VITALS: BP 128/53
--- NOTE | 2020-12-01 20:20 | NUR ---
PATIENT RECEIVED SITTING UP IN BED. ASSESSMENT & VITAL SIGNS DONE. C/O FEET ITCHING, LOTION APPLIED. EFFECTIVE. BED LOW. ALARM ON. CALL LIGHT WITHIN REACH. WILL CONTINUE TO CONTINUE TO MONITOR.
--- NOTE | 2020-12-01 22:17 | NUR ---
PATIENT USED CALL LIGHT FOR ASSIST. PATIENT MODEATE ASSIST ON COMMODE. VOID ONLY. RETURNED TO LOW BED. ALARM ON. CALL LIGHT WITHIN REACH. WILL CONTINUE TO MONITOR.
--- NOTE | 2020-12-02 00:23 | NUR ---
ON THIS ROUND PATIENT AWAKE. PATIENT MODERATE ASSIST IN & OUT OF BED. ON & OFF COMMODE. VOID ONLY. PATIENT RETURNED TO LOW BED. ALARM ON. CALL LIGHT WITHIN REACH. WILL CONTINUE TO MONITOR.
--- NOTE | 2020-12-02 02:13 | NUR ---
I have reviewed this patient and I concur with the Shift Assessment completed by the Licensed Practical Nurse today this shift.
--- NOTE | 2020-12-02 03:47 | NUR ---
PATIENT EYES CLOSED. RESPIRATIONS 18 & EVEN. BED LOW. CALL LIGHT & BEDSIDE TABLE WITHIN REACH. WILL CONTINUE TO MONITOR.
[2020-12-02 06:02] LABS: ALBUMIN 2.9 g/dL (3.4-5.0); ANION GAP 12.8 mmol/L (8-16); BILIRUBIN - TOTAL 0.4 mg/dL (0.2-1.3); CARBON DIOXIDE 22.6 mmol/L (21.0-32.0); CREATININE - SERUM 1.9 mg/dL (0.6-1.3); POTASSIUM - SERUM 4.4 mmol/L (3.5-5.1); PROTEIN - SERUM 5.5 g/dL (6.4-8.2)
[2020-12-02 08:00] VITALS: BP 123/32
--- NOTE | 2020-12-02 08:00 | NUR ---
PT UP TO BEDSIDE COMMODE WITH ASSIST TOLERATED WELL BACK TO BED CALL LIGHT IN REACH WILL MONITER
--- NOTE | 2020-12-02 17:46 | NUR ---
PT RESTING IN BED WITH EYES OPEN CALL LIGHT IN REACH WILL MONITER
--- NOTE | 2020-12-02 19:20 | NUR ---
PATIENT RECIEVED SITTING UP IN BED. ASSESSMENT & VITAL SIGNS DONE. NO C/O PAIN OR DISTRESS. BED LOW. ALARM ON. CALL LIGHT WITHIN REACH. WILL CONTINUE TO MONITOR.
[2020-12-02 20:13] VITALS: BP 138/58
--- NOTE | 2020-12-02 20:35 | NUR ---
PATIENT USED CALL LIGHT FOR ASSIST. PATIENT MINMAL ASSIST OUT OF BED ONTO COMMODE. VOID ONLY. PATIENT RETURNED TO LOW BED. ALARM ON. PILLOW BETWEEN & UNDER LEGS. BEDSIDE TABLE, CALL LIGHT WITHIN REACH. WILL CONTINUE TO MONITOR.
--- NOTE | 2020-12-02 21:15 | NUR ---
PATIENT USED CALL LIGHT FOR ASSIST. PATIENT MODERATE ASSIST IN & OUT OF BED. ON & OFF COMMODE. VOID ONLY. PATIENT RETURNED TO LOW BED. ALARM ON. CALL LIGHT & WATER WITHIN REACH. WILL CONTINUE TO MONITOR.
--- NOTE | 2020-12-02 23:41 | NUR ---
PATIENT USED CALL LIGHT FOR ASSIST. PATIENT MODERATE ASSIST ON & OFF COMMODE. VOID ONLY. PATIENT RETURNED TO LOW BED. BEDSIDE TABLE, CALL LIGHT WITHIN REACH. ALARM ON. WILL CONTINUE TO MONITOR.
--- NOTE | 2020-12-03 00:49 | NUR ---
PATIENT USED CALL LIGHT FOR ASSIST. PATIENT UNCOMFORTABLE. PATIENT REPOSITIONED SELF TO RIGHT SIDE. PILLOW UNDER & BETWEEN LEGS. WARM BLANKET PLACED NEXT TO PATIENT. SHEET & PATIENT BLANKET OVER PATIENT. CALL LIGHT WITHIN REACH. ALARM ON. WILL CONTINUE TO MONITOR.
--- NOTE | 2020-12-03 03:35 | NUR ---
PT CALLED REQUESTING TOILETING ASSISTANCE. ASSISTED PT WITH MIN ASSIST TRANSFER FROM BED TO BSC. PT HAD SMALL FORMED BM AND VOIDED. PT BACK IN BED SUPINE. DENIES ANY OTHER NEEDS. CALL LIGHT WITHIN REACH.
--- NOTE | 2020-12-03 04:15 | NUR ---
I have reviewed this patient and I concur with the Shift Assessment completed by the Licensed Practical Nurse today this shift.
--- NOTE | 2020-12-03 08:00 | NUR ---
PT RESTING IN BED WITH EYES OPEN CALL LIGHT IN REACH NO PROBLEMS WILL MONITER
[2020-12-03 08:06] LABS: ALBUMIN 2.7 g/dL (3.4-5.0); ANION GAP 9.5 mmol/L (8-16); BILIRUBIN - TOTAL 0.31 mg/dL (0.2-1.3); CALCIUM 7.4 mg/dL (8.5-10.1); CARBON DIOXIDE 22.9 mmol/L (21.0-32.0); CREATININE - SERUM 1.9 mg/dL (0.6-1.3); POTASSIUM - SERUM 4.4 mmol/L (3.5-5.1); PROTEIN - SERUM 5.2 g/dL (6.4-8.2)
[2020-12-03 08:21] VITALS: BP 137/45
--- NOTE | 2020-12-03 18:35 | NUR ---
PT RESTING IN BED WITH EYES OPEN CALL LIGHT IN REACH WILL MONITER
--- NOTE | 2020-12-03 19:05 | NUR ---
PATIENT RECEIVED SITTING UP IN BED. ASSESSMENT & VITAL SIGNS DONE. NO C/O PAIN OR DISTRESS. BED LOW. CALL LIGHT, SIDE TABLE WITHIN REACH. WILL CONTINUE TO MONITOR.
[2020-12-03 19:55] VITALS: BP 153/56
--- NOTE | 2020-12-04 00:11 | NUR ---
PATIENT USED CALL LIGHT FOR ASSIST. PATIENT MODERATE ASSIST IN & OUT OF BED. ON & OFF COMMODE. VOID ONLY. RETURNED TO LOW BED. WARM BLANKET PLACED ON PATIENT. ALARM ON. CALL LIGHT WITHIN REACH. WILL CONTINUE TO MONITOR.
--- NOTE | 2020-12-04 01:38 | NUR ---
PATIENT C/O ITCHING FEET. PATIENT GIVEN BENADRYL FOR ITCHING. NO ALLERGIES TO BENADRYL IN PATIENT RECORD OR PATIENT WHEN ASKED IF ALLERGIC. PATIENT CALL LIGHT WITHIN REACH. ALARM ON. WILL CONTINUE TO MONITOR.
--- NOTE | 2020-12-04 01:52 | NUR ---
I have reviewed this patient and I concur with the Shift Assessment completed by the Licensed Practical Nurse today this shift.
--- NOTE | 2020-12-04 02:22 | NUR ---
PATIENT EYES CLOSED. RESPIRATIONS 18 & EVEN. BENADRYL EFFECTIVE. NO C/O ITCHING. BED LOW. ALARM ON. CALL LIGHT & WATER WITHIN REACH. WILL CONTINUE TO MONITOR.
--- NOTE | 2020-12-04 02:41 | NUR ---
PATIENT USED CALL LIGHT FOR ASSIST. MOD ASSIST IN & OUT OF BED. ON & OFF COMMODE. RETURNED TO LOW BED. ALARMM ON. CALL LIGHT WITHIN REACH. WILL CONTINUE TO MONITOR.
[2020-12-04 07:21] VITALS: BP 175/75
[2020-12-04 08:04] LABS: BASOPHILS 1.2 % (0-2); EOSINOPHILS 5.4 % (0-7); HEMATOCRIT 29.5 % (36.0-48.0); HEMOGLOBIN 9.4 g/dL (12-16); IMMATURE GRANULOCYTES 0.2 % (0-5); LYMPHOCYTE ABS# 0.97 10x3/uL (1.18-3.74); LYMPHOCYTES 18.7 % (15-50); MCHC 31.9 g/dL (31.0-37.0); MCV 94.2 fL (80.0-100.0); MEAN PLATELET VOLUME 10.1 fL (7.4-10.4); MONOCYTES 11.8 % (2-11); NEUTROPHIL ABS# 3.26 10x3/uL (1.56-6.13); NEUTROPHILS 62.7 % (40-80); PLATELET COUNT 241 10x3/uL (130-400); RBC 3.13 10x6/uL (4.00-5.40); RDW 13.4 % (11.5-14.5); WBC 5.2 10x3/uL (4.8-10.8)
--- NOTE | 2020-12-04 08:36 | NUR ---
SHE HAS BEEN WORKING WITH THERAPY. SETTING UP IN THE WHEELCHAIR NOW. WEARING 2 LITERS NC. DENIES ANY PAIN. HER BOTTOM IS LOOKING BETTER, REDNESS WITHOUT SKIN BREAKDOWN, STILL APPLIED MARLEEN. APPLIED A NEW MEPILEX TO THE LEFT HEEL THE RIGHT HEEL IS HEALED. SHE HAS SCRATCH CALVERT ON HER LEGS AND ANKLES. SHE HAS A SMALL RED AREA ON HER GREAT TOE. THE CALL LIGHT IS WITHIN REACH.
[2020-12-04 08:40] LABS: ALBUMIN 2.8 g/dL (3.4-5.0); ANION GAP 8.1 mmol/L (8-16); BILIRUBIN - TOTAL 0.36 mg/dL (0.2-1.3); CALCIUM 7.9 mg/dL (8.5-10.1); CARBON DIOXIDE 25.3 mmol/L (21.0-32.0); CREATININE - SERUM 1.7 mg/dL (0.6-1.3); POTASSIUM - SERUM 4.4 mmol/L (3.5-5.1); PROTEIN - SERUM 5.1 g/dL (6.4-8.2)
--- NOTE | 2020-12-04 09:24 | RHP ---
PATIENT: FIDE TORRES MEDICAL RECORD: [id number] ACCOUNT: [id number] LOCATION:[facility]1110 : 34 ADMISSION DATE: 11/25/20 REHABILITATION HISTORY AND PHYSICAL EXAMINATION POST ADMISSION PHYSICIAN EXAMINATION POST ADMISSION PHYSICAL EXAMINATION AND HISTORY AND PHYSICAL ADMITTING DIAGNOSIS: Uremic myopathy. HISTORY OF PRESENT ILLNESS: The patient is an 89-year-old female patient who sees Dr. Nielsen, who presented to the ED with complaints of weakness, fatigue, dyspnea, shortness of breath, and chest pain. She had been tested for COVID and came back negative. She was found to have a UTI. She was placed on IV Rocephin and oral Zithromax while awaiting cultures. The patient has a history of hypertension, CHF, COPD, is on home O2 dependence. She was noted to be followed throughout her stay by nephrology and cardiology. She has been also followed by Dr. Curry across [facility]. The patient's EKG showed a right bundle branch block. Her troponin was initially negative. The patient is currently mod to max assist with ADLs and max assist with ambulation just 8 feet with a rolling walker. She has got proximal muscle weakness. She is currently being monitored closely for lab values, cognition, medication adjustments, monitor pain control. She has got decreased activity tolerance, decreased strength, decreased range of motion, impaired mobility. She has got dyspnea on exertion. All of these are barriers to her discharge home at this time. COMORBIDITIES: In this patient including acute encephalopathy, CHF, got a history of chronic kidney disease, COPD, emphysema, diabetes, UTI, weakness, and nausea. PAST MEDICAL HISTORY: Significant for macular degeneration. She has got a history of COPD, arthritis, got a history of hypertension and CHF. PAST SURGICAL HISTORY: Includes gallbladder surgery, knee surgery, cataracts, hysterectomy. ALLERGIES: STATINS. SHE IS ALLERGIC TO FLUVASTATIN, SODIUM, MOMETASONE FUROATE, NIACIN, AND MORPHINE. CURRENT MEDICATIONS: Include Metoprolol, she is on 50 mg daily; aspirin chewable 81 mg daily. She is on amlodipine 10 mg daily, Zofran 4 mg q.6 hours, acetaminophen 650 q.6 hours p.r.n. She is on potassium chloride 10 mEq b.i.d., Atrovent nasal spray 2 sprays b.i.d., Perforomist 20 mcg b.i.d., Pulmicort 0.5 mg b.i.d., hydralazine 25 mg b.i.d., sodium chloride 1 gram t.i.d. She is on electrolyte protocol at this time. HABITS: No alcohol or tobacco use. FAMILY HISTORY: Noncontributory. SOCIAL HISTORY: The patient hopes to return back home and get back to her prior level of functioning. REVIEW OF SYSTEMS: GENERAL: Does complain of some weakness and fatigue. HISTORY AND PHYSICAL [id number] MELISSAFIDE Mata HEENT: Denies cold, cough, or congestion. CARDIOVASCULAR: Denies any chest pain. PHYSICAL EXAMINATION: VITAL SIGNS: Stable, afebrile. GENERAL: An elderly female, in no acute distress on exam. HEENT: Normocephalic and atraumatic. Mucosa moist. NECK: Supple. No lymphadenopathy. LUNGS: Clear in upper garcia. No wheeze or rales. HEART: Regular rate and rhythm. No murmurs, rubs or gallops. ABDOMEN: Soft, benign, nondistended. Positive bowel sounds times 4. EXTREMITIES: No clubbing, cyanosis or edema. NEUROLOGIC: She does have diffuse weakness. LABORATORY DATA: Her white count of 6.8, H&H 10 and 31, and platelet count is noted to be 289. Sodium 129, potassium 4.3, BUN and creatinine of 41 of 2.2, and blood sugar is noted to be 109. Her admit UA did show trace leukocyte esterase. ASSESSMENT: This is an 89-year-old female patient admitted to the rehab with a working diagnosis of uremic myopathy. The patient has potential to make improvement. We instituted the following multidisciplinary therapies including, not limited physical, occupational, respiratory, speech, nutritional services, prosthetics and orthotics. Given her complex medical condition and risks for more complications, rehabilitation services cannot be provided at a low level of care such as longterm facility. PLAN: 1. Admit to [facility] for inpatient therapy to include the following disciplines; A. Physical therapy to improve gait, all transfer skills and bed mobility to a modified independent level. B. Occupational therapy to improve activities of daily living. C. Case management to help with discharge planning and placement options. D. Nutrition to assist with nutritional needs. E. Rehabilitation nursing to assist in monitoring the patient's underlying medical conditions and to assist with any type of bowel or bladder management. 2. The patient's current medication and medical care will be continued. 3. Placed on standard fall precautions. 4. The patient's estimated length of stay is approximately 7-10 days. 5. We discussed this patient during care team staff meeting this week. I will see again in the a.m. Continuation of appropriate home medications. TRANSINT:[id number] Voice Confirmation ID: [id number] DOCUMENT ID: [id number] 12/01/2020 Edited windy COHEN. NOEL notes whether there has been none or any medical/functional change since admission: - No change since preadmission screen. NOEL attests patient continues to be appropriate for IRF: - Continues to be appropriate. HISTORY AND PHYSICAL [id number] FIDE TORRES,EVA VÁSQUEZ MD at 0924 CC: [id number] DICTATION DATE: 11/26/20 1236 MERCHANDISE SUPPORT ASSOCIATE: 11/26/20 1405 ADM IN [place] [id number] [place] [id number]
--- NOTE | 2020-12-04 12:41 | NUR ---
Nutrition Follow-up: Nausea and vomiting has improved. Diet: Diabetic + 1200mL fluid restriction PO intake: ~77% average x last 5 meals. She states that her appetite "back up to full speed." Last BM: 12/03/20 x 2 Wt: 117# (11/27/20) Meds noted: NaCl, micro-K Labs noted: BUN 26(H), Cr 1.7(H), GFR 30(L), Alb 2.8(L) Skin: PU DTI to L heel Recommend continue current diet (or per MD). RD will follow-up within 7 days.
[2020-12-04 20:20] VITALS: BP 139/42
--- NOTE | 2020-12-05 01:10 | NUR ---
I have reviewed this patient and I concur with the Shift Assessment completed by the Licensed Practical Nurse today this shift.
--- NOTE | 2020-12-05 02:10 | NUR ---
ASSISTED PT TO RESTROOM AND BACK TO BED. SHE DENIES PAIN OR NEEDS. BED IS LOW, BED ALARM ON AND CALL LIGHT WITHIN REACH.
[2020-12-05 06:20] LABS: ALBUMIN 2.8 g/dL (3.4-5.0); BILIRUBIN - TOTAL 0.38 mg/dL (0.2-1.3); CALCIUM 7.8 mg/dL (8.5-10.1); PROTEIN - SERUM 5.6 g/dL (6.4-8.2)
[2020-12-05 07:36] VITALS: BP 111/69
--- NOTE | 2020-12-05 09:08 | NUR ---
SHE IS SETTING UP IN THE WHEELCHAIR, BEEN WORKING WITH PT THIS MORNING. SHE HAS THE DRESSING TO THE LEFT HEEL. HER COCCYX IS HEALING, MARLEEN APPLIED. THE CALL LIGHT IS WITHIN REACH AND THE CHAIR ALARM IS ON.
--- NOTE | 2020-12-05 19:20 | NUR ---
AWAKE AND ALERT. RESTING IN BED WITH RESPIRATIONS UNLABORED ON O2/2L ON PER NASAL CANNULA. NO DISTRESS NOTED. CALL LIGHT IN REACH.
[2020-12-05 20:34] VITALS: BP 144/30
--- NOTE | 2020-12-06 01:31 | NUR ---
SLEEPING WITH NO DISTRESS NOTED. CALL LIGHT IN REACH.
--- NOTE | 2020-12-06 03:50 | NUR ---
C/O SHORTNESS OF BREATH. NOTED COUGHING WITH RALES HEARD IN UPPER LUNGS. O2 INCREASED TO 3L/NC. O2 SATURATION WENT FROM 87% TO 93%. RESPIRATORY THERAPY NOTIFED. RECOMMENDED HOT TEA. TEA GIVEN. O2 SATURATION NOW 95% CONTINUES TO COUGH BUT STATES "I CANT GET ANYTHING UP". WILL MONITOR.
--- NOTE | 2020-12-06 04:00 | NUR ---
CALMER NOW AND NOT SHORT OF BREATH. O2 SATURATION 96% ON O2/3L. WILL MONITOR.
--- NOTE | 2020-12-06 04:50 | NUR ---
ASSISTED TO BATHROOM. VERY SHORT OF BREATH WITH MINIMAL EXERTION. O2/3L ON PER NASAL CANNULA. WORE O2 TO BATHROOM. NOW BACK IN BED WITH HEAD OF BED ELEVATED. WILL CONTINUE TO MONITOR.
--- NOTE | 2020-12-06 05:16 | NUR ---
MESSAGE LEFT ON ROUNDING SHEET FOR DR FUENTES CONCERNING PATIENTS COUGH. CONTINUES TO COUGH ON AND OFF. O2/3L ON PER NASAL CANNULA.
[2020-12-06 06:20] LABS: BASOPHILS 0.3 % (0-2); EOSINOPHILS 2.2 % (0-7); HEMATOCRIT 31.3 % (36.0-48.0); HEMOGLOBIN 10.1 g/dL (12-16); IMMATURE GRANULOCYTES 0.1 % (0-5); LYMPHOCYTE ABS# 0.44 10x3/uL (1.18-3.74); LYMPHOCYTES 4.5 % (15-50); MCH 30.8 pg (26.0-34.0); MCHC 32.3 g/dL (31.0-37.0); MCV 95.4 fL (80.0-100.0); MEAN PLATELET VOLUME 10.5 fL (7.4-10.4); MONOCYTES 5.9 % (2-11); NEUTROPHIL ABS# 8.59 10x3/uL (1.56-6.13); PLATELET COUNT 242 10x3/uL (130-400); RBC 3.28 10x6/uL (4.00-5.40)
[2020-12-06 06:22] LABS: WBC 9.9 10x3/uL (4.8-10.8)
[2020-12-06 07:06] LABS: ANION GAP 15.9 mmol/L (8-16); BILIRUBIN - TOTAL 0.3 mg/dL (0.2-1.3); CALCIUM 7.8 mg/dL (8.5-10.1); CARBON DIOXIDE 20.1 mmol/L (21.0-32.0); CREATININE - SERUM 1.7 mg/dL (0.6-1.3); PROTEIN - SERUM 5.6 g/dL (6.4-8.2)
--- NOTE | 2020-12-06 08:00 | NUR ---
PATIENT IS ALERT\ORIENT. CALL LIGHT WITHIN REACH. VOICES NO NEEDS AT THIS TIME. WILL CONTINUE WITH PLAN OF CARE
[2020-12-06 09:46] VITALS: BP 123/36
--- NOTE | 2020-12-06 10:26 | NUR ---
PATIENT IN REHAB ROOM. WORKING WITH PHYSICAL THERAPIST. DENIES ANY PAIN/DISCOMFORT AT THIS TIME.
--- NOTE | 2020-12-06 13:44 | NUR ---
CARE TEAM MEETING: PATIENT IS DOING WELL IN THERAPY HER TENATIVE DC DATE IS 12/08/20. WILL CONTINUE TO FOLLOW WITH PATIENT .
--- NOTE | 2020-12-06 14:05 | NUR ---
I have reviewed this patient and I concur with the Shift Assessment completed by the Licensed Practical Nurse today this shift.
--- NOTE | 2020-12-06 14:52 | NUR ---
PATIENT RESTING IN BED AFTER THERAPY. EYES CLOSED. CALL LIGHT WITHIN REACH.
[2020-12-06 20:30] VITALS: BP 157/55
--- NOTE | 2020-12-07 01:31 | NUR ---
ASSISTED PT TO THE RESTROOM WHERE SHE HAD A BOWEL MOVEMENT AND VOIDED. STANDBY ASSIST ONLY. MARLEEN APPLIED TO BUTTOCKS. SHE DENIES PAIN OR NEEDS. BED IS LOW, BED ALARM ON AND CALL LIGHT WTIHIN REACH.
--- NOTE | 2020-12-07 07:27 | NUR ---
PT RESTING IN BED WITH EYES OPEN CALL LIGHT IN REACH WILL MONITER
[2020-12-07] MEDS ORDERED: METOPROLOL TART50 MG PO (08:56)
[2020-12-07] MEDS ORDERED: PERFOROMIS20 MCG/21 INH (08:56)
--- NOTE | 2020-12-07 12:15 | NUR ---
PT DISCHARGED TO HOME VIA WHEELCHAIR WITH [facility] . DISCHARGE SUMMARY AND MEDS REVIEWED WITH PT TOLERATED WELL
--- NOTE | 2020-12-07 18:11 | NUR ---
PT RESTING IN BED WITH EYES OPEN CALL LIGHT IN REACH WILL MONITER
[2020-12-07 19:58] VITALS: BP 145/40
--- NOTE | 2020-12-08 00:15 | NUR ---
SHE C/O HER LEGS ITCHING. HER SKIN IS DRY SO LOTION APPLIED. SHE IS SCRATCHING HER SKIN MAKING ABRASIONS. OFFERED BENADRYL AND SHE ACCEPTED.
[2020-12-08 06:58] LABS: BASOPHILS 0.4 % (0-2); EOSINOPHILS 3.7 % (0-7); HEMATOCRIT 27.2 % (36.0-48.0); HEMOGLOBIN 8.7 g/dL (12-16); IMMATURE GRANULOCYTES 0.1 % (0-5); LYMPHOCYTE ABS# 0.86 10x3/uL (1.18-3.74); LYMPHOCYTES 11.3 % (15-50); MCH 30.2 pg (26.0-34.0); MCV 94.4 fL (80.0-100.0); MEAN PLATELET VOLUME 10.4 fL (7.4-10.4); MONOCYTES 9.7 % (2-11); NEUTROPHIL ABS# 5.67 10x3/uL (1.56-6.13); NEUTROPHILS 74.8 % (40-80); PLATELET COUNT 205 10x3/uL (130-400); RBC 2.88 10x6/uL (4.00-5.40); RDW 14.1 % (11.5-14.5); WBC 7.6 10x3/uL (4.8-10.8)
[2020-12-08 07:07] LABS: ANION GAP 9.6 mmol/L (8-16); CALCIUM 7.7 mg/dL (8.5-10.1); CARBON DIOXIDE 24.1 mmol/L (21.0-32.0); CREATININE - SERUM 1.8 mg/dL (0.6-1.3); POTASSIUM - SERUM 4.7 mmol/L (3.5-5.1)
--- NOTE | 2020-12-08 07:28 | NUR ---
PT RESTING IN BED WITH EYES OPEN CALL LIGHT IN REACH NO PROBLEMS
--- NOTE | 2020-12-08 09:27 | NUR ---
PATIENT DISCHARGING HOME TODAY WITH FAMILY. [facility] WILL RESUME THERAPY AT HOME. NO NEW DME NEEDED AT THIS TIME.DR. HUERTA 12/15/20 @ 3:10, DR. PITTMAN/CHICO MONTEIRO 12/13/20 @ 2:40. KITA SIGNED, IMM SERVED AND EXPLAINED, ONE GIVEN TO PATIENT AND ONE FILED IN CHART. NO COMPARE DATA REVIEWED PATIENT IS A CLIENT OF [facility] AND WISHES TO CONTINUE WITH THEIR SERVICE. D/C INSTRUCTIONS FAXED TO PCP, HOME HEALTH AND REVIEWED WITH PATIENT.
[2020-12-08 13:55] VITALS: BP 138/52
--- NOTE | 2020-12-08 18:31 | NUR ---
PT DISCHARGED TO HOME VIA WHEELCHAIR WITH SON DISCHARGE SUMMARY AND MEDS REVIEWED WITH SON NO QUESTION OR CONCERNS TOLERATED WELL
== END 2020-12-08 18:37 | disposition home health service (06) | DRG 92 ==
LOC: D.REHAB 16:08
PROVIDERS: Internal Medicine; ADMIT Emergency Medicine; ATTEND Emergency Medicine
DX: G72.89 Other specified myopathies (principal); G93.40 Encephalopathy, unspecified; I13.0 Hypertensive heart and chronic kidney disease with heart failure and stage 1 through stage 4 chronic kidney disease, or unspecified chronic kidney disease; N39.0 Urinary tract infection, site not specified; E87.1 Hypo-osmolality and hyponatremia; N17.9 Acute kidney failure, unspecified; J43.9 Emphysema, unspecified; R53.1 Weakness; R11.0 Nausea; E11.22 Type 2 diabetes mellitus with diabetic chronic kidney disease; N18.9 Chronic kidney disease, unspecified; I50.9 Heart failure, unspecified; R06.00 Dyspnea, unspecified

== ENCOUNTER 2020-12-19 11:19 | Inpatient (IN) | payer MEDICARE, BC ==
[~2020-12-19] VITALS: Ht 167.6 cm; Wt 57.2 kg
[~2020-12-19 11:19] MED LIST changes: +HYDRALAZINE HCL25 MG PO; +K-TAB10 MEQ PO; +METOPROLOL TART50 MG PO; +PERFOROMIS20 MCG/21 INH; +THERMOTABS 1 GM1 GM PO
[2020-12-19 11:31] VITALS: BP 154/38
[2020-12-19] MEDS ORDERED: LEXAPRO10 MG (11:35)
[2020-12-19 12:00] LABS: CALC OSMOLALITY 272 mosm/kg (275-300); CALCIUM 8.3 mg/dL (8.5-10.1); CHLORIDE - SERUM 103 mmol/L (98-107); CREATININE - SERUM 1.8 mg/dL (0.6-1.3); GLUCOSE 93 mg/dL (74-106); POTASSIUM - SERUM 4.1 mmol/L (3.5-5.1); SODIUM 135 mmol/L (136-145); UREA NITROGEN 21 mg/dL (7-18); eGFR NON AFRICAN AMERICAN 28 mL/min (90-120)
[2020-12-19 12:01] LABS: BASOPHILS 1.1 % (0-2); EOSINOPHILS 2.9 % (0-7); HEMATOCRIT 30.8 % (36.0-48.0); HEMOGLOBIN 9.9 g/dL (12-16); IMMATURE GRANULOCYTES 0.3 % (0-5); LYMPHOCYTES 13.1 % (15-50); MCHC 32.1 g/dL (31.0-37.0); MCV 93.3 fL (80.0-100.0); MEAN PLATELET VOLUME 9.6 fL (7.4-10.4); MONOCYTES 13.1 % (2-11); NEUTROPHIL ABS# 4.25 10x3/uL (1.56-6.13); NEUTROPHILS 69.5 % (40-80); RDW 13.8 % (11.5-14.5); WBC 6.1 10x3/uL (4.8-10.8)
[2020-12-19 12:05] LABS: INR 1.12 (0.85-1.17); PROTIME 13.3 SECONDS (11.6-15.0)
[2020-12-19 12:15] LABS: ALBUMIN 3.2 g/dL (3.4-5.0); ALKALINE PHOSPHATASE 42 U/L (30-120); ALT (SGPT) 13 U/L (10-68); BILIRUBIN - TOTAL 0.59 mg/dL (0.2-1.3); CKMB 0.1 U/L (0.0-3.6); CREATINE KINASE 29 UL (21-215); MAGNESIUM - SERUM 2.3 mg/dL (1.8-2.4); PROTEIN - SERUM 6.4 g/dL (6.4-8.2)
[2020-12-19 12:18] LABS: TROPONIN-I < 0.017 ng/mL (0.000-0.060)
[2020-12-19 12:28] LABS: PLATELET COUNT 262 10x3/uL (130-400)
[2020-12-19 14:01] LABS: BILIRUBIN NEGATIVE (NEGATIVE); KETONE NEGATIVE (NEGATIVE); NITRITE NEGATIVE (NEGATIVE); SQUAMOUS EPITHELIAL 0-5 HPF (0-4); WHITE CELLS - URINE 0-5 HPF (0-4)
[2020-12-19 14:02] LABS: BACTERIA FEW HPF (NONE SEEN)
--- NOTE | 2020-12-19 18:30 | NUR ---
RECEIVED PATIENT FROM ER VIA WHEELCHAIR. PATIENT IS AWAKE ALERT AND ORIENTED. PATIENT AMBULATES WELL FROM CHAIR TO RESTROOM. VITALS CHECKED. PATIENT BACK IN BED. CALL LIGHT IN REACH. NAD NOTED.
[2020-12-19 20:00] VITALS: BP 149/49
[2020-12-19 22:06] VITALS: BMI 20.3
[2020-12-20] VITALS: BP 137/44
[2020-12-20 04:00] VITALS: BP 130/39
[2020-12-20 06:04] LABS: BASOPHILS 0.8 % (0-2); EOSINOPHILS 2.6 % (0-7); HEMATOCRIT 29.4 % (36.0-48.0); HEMOGLOBIN 9.2 g/dL (12-16); IMMATURE GRANULOCYTES 0.2 % (0-5); LYMPHOCYTE ABS# 0.41 10x3/uL (1.18-3.74); LYMPHOCYTES 6.3 % (15-50); MCH 29.4 pg (26.0-34.0); MCHC 31.3 g/dL (31.0-37.0); MCV 93.9 fL (80.0-100.0); MEAN PLATELET VOLUME 10.1 fL (7.4-10.4); MONOCYTES 7.4 % (2-11); NEUTROPHIL ABS# 5.41 10x3/uL (1.56-6.13); NEUTROPHILS 82.7 % (40-80); PLATELET COUNT 237 10x3/uL (130-400); RBC 3.13 10x6/uL (4.00-5.40); RDW 13.8 % (11.5-14.5); WBC 6.5 10x3/uL (4.8-10.8)
[2020-12-20 06:34] LABS: CALCIUM 7.9 mg/dL (8.5-10.1); CARBON DIOXIDE 22.9 mmol/L (21.0-32.0); CREATININE - SERUM 1.5 mg/dL (0.6-1.3); POTASSIUM - SERUM 3.9 mmol/L (3.5-5.1)
[2020-12-20 08:08] VITALS: BP 137/34
--- NOTE | 2020-12-20 09:04 | NUR ---
NURSE TALKS WITH PATIENT'S FAMILY THIS AM ABOUT PATIENT. PATIENT IS DOING WELL. NAD NOTED.
[2020-12-20 10:53] VITALS: BP 132/70
[2020-12-20 13:39] VITALS: Ht 167.6 cm; Wt 57.2 kg
--- NOTE | 2020-12-20 15:02 | NUR ---
NURSE STARTS IV ANTIBIOTICS
[2020-12-20 16:13] VITALS: BP 125/55
[2020-12-20 18:10] VITALS: BP 153/68
--- NOTE | 2020-12-20 20:30 | NUR ---
PT LAYING IN BED SUPINE. PT REQUESTING SCD'S BE TAKEN OFF DUE TO DISCOMFORT. PT HAS NO SCHEDULED MEDICATIONS AT THIS TIME. PT ASSISTED TO RESTROOM WITH MINIMAL ASSISTANCE. PT WEARING A BREIF AND 3 LITERS OF OXYGEN BNC. PT DENIES PAIN OR DISCOMFORT AT THIS TIME. WILL CONTINUE TO MONITOR.
[2020-12-21] VITALS: BP 144/53
[2020-12-21 04:00] VITALS: BP 141/50
[2020-12-21 07:00] VITALS: BP 170/67
--- NOTE | 2020-12-21 09:33 | NUR ---
PATIENT AAOX4, RESP EVEN AND NON LABORED, NO S/S OF DISTRESS, MEDICATIONS ADMINISTERED WITH NO COMPLICATIONS, WATER, COFFEE AND TISSUE PAPER PROVIDED, NO FURTHER NEEDS AT THIS TIME, MURIEL HUITRONP
--- NOTE | 2020-12-21 10:12 | NUR ---
I have reviewed this patient and I concur with the Shift Assessment completed by the Licensed Practical Nurse today this shift.
[2020-12-21 11:00] VITALS: BP 147/57
[2020-12-21 14:00] VITALS: BP 146/63
[2020-12-21 20:00] VITALS: BP 132/48
--- NOTE | 2020-12-21 21:50 | NUR ---
ASSESSMENT COMPLETE. NO S/S OF DISTRESS. AAOX4. DENIES PAIN OR SOB. SN ASSISTED PATIENT TO RESTROOM. PATIENT REQUIRES SBA. DENIES ANY FURTHER NEEDS AT THIS TIME. CLIR. BED IN LOW POSITIN. WILL CONT TO MONITOR.
[2020-12-22] VITALS: BP 136/50
--- NOTE | 2020-12-22 01:59 | NUR ---
PT SLEEPING. RR EVEN AND NONLABORED. DOOR TO ROOM AJAR PER PATIENT REQUEST. CLIR. BED IN LOW POSITION. WILL CONT TO MONITOR.
[2020-12-22 04:00] VITALS: BP 136/63
[2020-12-22 08:48] VITALS: BP 152/62
--- NOTE | 2020-12-22 12:58 | NUR ---
PATIENT LYING SEMI FOWLERS AAOX4, RESP EVEN AND NON LABORED, NO S/S OF DISTRESS, MEDICATIONS ADMINISTERED WITH NO COMPLICATIONS, PATIENT IS AWARE OF DISCHARGE AND THAT HER SON IN LAW WILL BE HERE TO GET HER AROUND [phone] 12/22/20, NO FURTHER NEEDS AT THIS TIME, CAMERON HUITRON
--- NOTE | 2020-12-22 17:50 | MORECARE ---
CASE MANAGEMENT DISCHARGE SUMMARY PATIENT: FIDE TORRES UNIT: [id number] ADM DATE: 12/19/20 AGE: 89 : 32 SEX: F ROOM/BED: D.8976 AUTHOR: JOSUÉ,DOC PHYSICIAN: REFERRING PHYSICIAN: EVA HUERTA MD DATE OF SERVICE: 12/22/20 Case Management Discharge Planning Summary CT Patient Name: FIDE TORRES Attending MD : EVA SANFORD Medical Record: [id number] Encounter : [id number] Facility : [address] [place] [address] Medical Admission Date : 116:22 Center Discharge Date : 12/22/[address] [place] [address] Date of : DC Plan ID : [id number] Age/Sex/Martia : 89/ F/W Printed on : 12/22/20 17:48 CT DCP Review Details Anticipated D/C: 12/22/2020 Expected LOS : 3 Case Status : COMPLET - Initial Reviewe: [id number] - Danni Ashley Initial Review: 12/19/2020 Planned Disposi: 06 - Discharged/Trans to Home Under Care of Organized Home Health Service in Anticipation of Skilled Care Final Discharge: 06 - Discharged/Trans to Home Under Care of Organized Home Health Service in Anticipation of Skilled Care Final Reviewer : [id number] : Danni Ashley Final Review : Comments CT Entered Date Type Reviewer 12/22/20 17:31 CT Discharge Planning Danni Ashley Comment CM met with patient to complete DC plan and needs. Patient lives independently at home with daughter, son in law and grandson. Pt will discharge to her previous living arrangements with [facility] services. No additional needs voiced. Pt feels this is a safe discharge. CM discussed method of transportation and patient stated her son in law (Rell Sena) will pick her up. Patient voiced no other needs at this time and is satisfied with discharge plan. DC IMM delivered, explained, signed by the patient, and placed in chart. PCF explained, signed and placed on chart. DCP Focus Questions & Answers DCP Screen High Risk Factors: None Walking limitation: Patient stated self rated Yes walking limitation present? Age: 82 + Prior living environment: Lives with others Disability ranking: Grade 3: Moderate disability DCP Evaluation Patient and/or caregiver agree upon recommended Yes discharge plan? Patient's current cognitive status: *Oriented to person, place, situation, time and present Patient's ability to cope with chronic illness a. Adequate (0-3 ED visits in 6 mos., adequate financial resources, attends scheduled appts.) Functional screen assessment: No issues identified Physical Status: Independent with ADL's Living Arrangements: Home with others Baseline cognitive status: *Oriented to person, place, situation, time and present Medication Management: Patient states can afford medications Does Patient have transportation to get home and Yes to follow-up medical appointments when discharged from the hospital? Would patient like to participate in any Care Not applicable Coordination programs (if applicable): Does the patient have electricity at home? Yes Does the patient have running water in their Yes house? Equipment in use: Walker - Standard Equipment in use: Shower Chair Equipment in use: Other Equipment in use: Cane - Single Leg Mental health screen: No mental health history Resources / Services in place: Home health DCP Re-evaluation Would patient like to participate in any Care Not applicable Coordination programs (if applicable): [facility] FIDE TORRES MR#: [id number] /Age/Sex/Zdgdxr0-Roo-[birth year] /89/F /W Attending Physician Name: BRADLEY [id number] Patient Account:[id number] [facility] Page -1 of 1 All edits/amendments must be made on the electronic document DICTATION DATE: 12/22/201747 INDUSTRIAL COOK: ANGELIC 12/22/201747 RPT#: [id number] DC DATE:12/22/20 STATUS: DIS IN [facility] [address] [place] [address] END OF REPORT
--- NOTE | 2020-12-24 15:30 | MORECARE ---
CASE MANAGEMENT DISCHARGE SUMMARY PATIENT: FIDE TORRES UNIT: [id number] ADM DATE: 12/19/20 AGE: 89 : 32 SEX: F ROOM/BED: D.2256 AUTHOR: JOSUÉ,DOC PHYSICIAN: REFERRING PHYSICIAN: EVA HUERTA MD DATE OF SERVICE: 12/24/20 Case Management Discharge Planning Summary CT Patient Name: FIDE TORRES Attending MD : EVA SANFORD Medical Record: [id number] Encounter : [id number] Facility : [address] [place] [address] Medical Admission Date : 116:22 Center Discharge Date : 12/22/[address] [place] [address] Date of : DC Plan ID : [id number] Age/Sex/Martia : 89/ F/W Printed on : 12/24/20 15:29 CT DCP Review Details Anticipated D/C: 12/22/2020 Expected LOS : 3 Case Status : COMPLET - Initial Reviewe: [id number] - Danni Ashley Initial Review: 12/19/2020 Planned Disposi: 06 - Discharged/Trans to Home Under Care of Organized Home Health Service in Anticipation of Skilled Care Final Discharge: 06 - Discharged/Trans to Home Under Care of Organized Home Health Service in Anticipation of Skilled Care Final Reviewer : [id number] : Danni Ashley Final Review : Comments CT Entered Date Type Reviewer 12/22/20 17:31 CT Discharge Planning Danni Ashley Comment CM met with patient to complete DC plan and needs. Patient lives independently at home with daughter, son in law and grandson. Pt will discharge to her previous living arrangements with [facility] services. No additional needs voiced. Pt feels this is a safe discharge. CM discussed method of transportation and patient stated her son in law (Rell Sena) will pick her up. Patient voiced no other needs at this time and is satisfied with discharge plan. DC IMM delivered, explained, signed by the patient, and placed in chart. PCF explained, signed and placed on chart. DCP Focus Questions & Answers DCP Screen High Risk Factors: None Walking limitation: Patient stated self rated Yes walking limitation present? Age: 82 + Prior living environment: Lives with others Disability ranking: Grade 3: Moderate disability DCP Evaluation Patient and/or caregiver agree upon recommended Yes discharge plan? Patient's current cognitive status: *Oriented to person, place, situation, time and present Patient's ability to cope with chronic illness a. Adequate (0-3 ED visits in 6 mos., adequate financial resources, attends scheduled appts.) Functional screen assessment: No issues identified Physical Status: Independent with ADL's Living Arrangements: Home with others Baseline cognitive status: *Oriented to person, place, situation, time and present Medication Management: Patient states can afford medications Does Patient have transportation to get home and Yes to follow-up medical appointments when discharged from the hospital? Would patient like to participate in any Care Not applicable Coordination programs (if applicable): Does the patient have electricity at home? Yes Does the patient have running water in their Yes house? Equipment in use: Walker - Standard Equipment in use: Shower Chair Equipment in use: Other Equipment in use: Cane - Single Leg Mental health screen: No mental health history Resources / Services in place: Home health DCP Re-evaluation Patient and/or caregiver agree upon recommended Yes discharge plan? Patient's current cognitive status: *Oriented to person, place, situation, time and present Reassessment due to: New discovery of admission to an acute inpatient facility within 30 days Functional screen assessment: Basic needs can adequately be met by self Patient gives permission to discuss discharge Discussed with Patient plans with: (name, relationship and number) Other Equipment comments: Patient has no needs for additional equipment Patient with capacity for self-care or can be Yes cared for in same environment as prior to hospitalization? Patient and/or Caregiver notified that they can Yes request a re-evaluation of the discharge plan at any time. Physical environment modification needed / N/A anticipated for discharge: Planned post hospital services available for Yes patient? Planned post hospital services covered by Yes insurance plan? Would patient like to participate in any Care Not applicable Coordination programs (if applicable): [facility] FIDE TORRES MR#: [id number] /Age/Sex/Leuebm2-Hsx-10 /89/F /W Attending Physician Name: BRADLEY [id number] Patient Account:[id number] [facility] Page -1 of 1 All edits/amendments must be made on the electronic document DICTATION DATE: 12/24/20 152 KENNEL WORKER: ANGELIC 12/24/20 152 RPT#: [id number] DC DATE:12/22/20 STATUS: DIS IN [facility] [address] [place] [address] END OF REPORT
== END 2020-12-22 14:18 | disposition home or self-care (01) | DRG 690 ==
LOC: D.ER 11:19 → D.M2 16:22
PROVIDERS: Emergency Medicine; ADMIT Family Medicine; ATTEND Family Medicine
DX: N39.0 Urinary tract infection, site not specified (principal); I50.32 Chronic diastolic (congestive) heart failure; R00.1 Bradycardia, unspecified; J44.9 Chronic obstructive pulmonary disease, unspecified; I11.0 Hypertensive heart disease with heart failure

== ENCOUNTER 2021-03-08 13:35 | Inpatient (IN) | payer MEDICARE, BC ==
[~2021-03-08] VITALS: Ht 167.6 cm; Wt 56.8 kg
[2021-03-08 14:24] LABS: CALC OSMOLALITY 284 mosm/kg (275-300); CALCIUM 8.4 mg/dL (8.5-10.1); CARBON DIOXIDE 25.6 mmol/L (21.0-32.0); CHLORIDE - SERUM 102 mmol/L (98-107); CREATININE - SERUM 2.1 mg/dL (0.6-1.3); POTASSIUM - SERUM 3.6 mmol/L (3.5-5.1); SODIUM 139 mmol/L (136-145); UREA NITROGEN 26 mg/dL (7-18); eGFR NON AFRICAN AMERICAN 23 mL/min (90-120)
[2021-03-08 14:28] LABS: BASOPHILS 1.8 % (0-2); EOSINOPHILS 5.3 % (0-7); HEMATOCRIT 37.8 % (36.0-48.0); HEMOGLOBIN 12.5 g/dL (12-16); MCH 28.9 pg (26.0-34.0); MCV 87.6 fL (80.0-100.0); MONOCYTES 11.5 % (2-11); NEUTROPHILS 66.4 % (40-80); PLATELET COUNT 212 10x3/uL (130-400); RBC 4.31 10x6/uL (4.00-5.40); RDW 13.5 % (11.5-14.5); WBC 5.9 10x3/uL (4.8-10.8)
[2021-03-08 14:30] LABS: GLUCOSE 141 mg/dL (74-106)
[2021-03-08 14:40] LABS: ALBUMIN 3.6 g/dL (3.4-5.0); ALKALINE PHOSPHATASE 52 U/L (30-120); ALT (SGPT) 11 U/L (10-68); BILIRUBIN - TOTAL 0.39 mg/dL (0.2-1.3); CKMB 0.6 U/L (0.0-3.6); CREATINE KINASE 60 UL (21-215); MAGNESIUM - SERUM 2.3 mg/dL (1.8-2.4); PROTEIN - SERUM 6.9 g/dL (6.4-8.2); TROPONIN-I < 0.017 ng/mL (0.000-0.060)
[2021-03-08 16:06] LABS: INR 1.11 (0.85-1.17); PROTIME 13.2 SECONDS (11.6-15.0)
[2021-03-08 16:07] LABS: APTT 31.3 SECONDS (22.8-39.4)
[2021-03-08 16:18] LABS: BILIRUBIN NEGATIVE (NEGATIVE); KETONE NEGATIVE mg/dL (< 1+); NITRITE NEGATIVE (NEGATIVE); PH 5.5 (5.0-8.0); UROBILINOGEN NORMAL mg/dL (< 2)
[2021-03-08] MEDS ORDERED: TOPROL XL50 MG PO (16:38)
--- NOTE | 2021-03-08 19:17 | NUR ---
PT REPORT GIVEN TO KELLIE DAVENPORT
--- NOTE | 2021-03-08 19:20 | NUR ---
assisted pt to bedside commode. no further needs at this time
[2021-03-08 19:30] VITALS: BP 153/54
[2021-03-08 20:30] VITALS: BP 144/62
[2021-03-08 21:31] VITALS: BP 146/64
[2021-03-08 22:40] VITALS: BP 163/58
[2021-03-08 23:40] VITALS: BP 159/63
[2021-03-09] VITALS (13 sets, daily range): BP systolic 135–170; BP diastolic 46–72; Ht 167.6 cm; Wt 56.8 kg
[2021-03-09 03:57] LABS: BASOPHILS 1.8 % (0-2); EOSINOPHILS 4.9 % (0-7); HEMATOCRIT 38.2 % (36.0-48.0); HEMOGLOBIN 12.7 g/dL (12-16); MCH 29.3 pg (26.0-34.0); MCHC 33.3 g/dL (31.0-37.0); MCV 87.8 fL (80.0-100.0); MEAN PLATELET VOLUME 8.6 fL (7.4-10.4); MONOCYTES 10.2 % (2-11); NEUTROPHILS 58.1 % (40-80); PLATELET COUNT 222 10x3/uL (130-400); RBC 4.35 10x6/uL (4.00-5.40); RDW 13.5 % (11.5-14.5)
[2021-03-09 04:03] LABS: WBC 7.6 10x3/uL (4.8-10.8)
[2021-03-09 04:09] LABS: ANION GAP 13.7 mmol/L (8-16); CALCIUM 8.6 mg/dL (8.5-10.1); CARBON DIOXIDE 28.8 mmol/L (21.0-32.0); CHOL - HDL RATIO 2.7 ratio (2.3-4.1); CREATININE - SERUM 1.9 mg/dL (0.6-1.3); LDL-HDL RATIO 1.5 ratio (1.5-3.5); POTASSIUM - SERUM 3.5 mmol/L (3.5-5.1)
--- NOTE | 2021-03-09 07:00 | NUR ---
699: RECEIVED REPORT FROM ETHEL Moran. PT RESTING IN BED AT THIS TIME, RR EVEN & UNLABORED, NO S/S OF ACUTE DISTRESS NOTED AT THIS TIME, WILL CONTINUE TO MONITOR. 729: RN TO PT BEDSIDE TO ASSIST TO BEDSIDE CAMODE. PT TRANSFERED WITH STANDBY ASSIST, STEADY TRANSFER, PT VOIDED, TRANSFERED BACK TO BED, RESET TO MONITOR. PT STATES NO NEEDS AT THIS TIME, A&OX3, GCS 15, RR EVEN & UNLABORED, NO S/S OF ACUTE DISTRESS NOTED AT THIS TIME, WILL CONTINUE TO MONITOR. 899: RN TO PT BEDSIDE TO DO MORNING MEDS, PT GONE TO RADIOLOGY. 944: PT RETURNED FROM RADIOLOGY. RN TO BEDSIDE, MEDS GIVEN, SEE NOV. PT STATES NO NEEDS OR CONCERNS AT THIS TIME, RN PLACED PT BACK TO MONITOR. WILL CONTINUE TO MONITOR.
--- NOTE | 2021-03-09 10:45 | NUR ---
1045: PT RESTING IN ROOM, PO FLUIDS PROVIDED PER REQUEST. NO S/S OF ACUTE DISTRESS NOTED AT THIS TIME, WILL CONTINUE TO MONITOR. 1145: PT RESTING IN ROOM AT THIS TIME, NO S/S OF ACUTE DISTRESS NOTED, WILL CONTINUE TO MONITOR. 1230: PT GIVEN LUNCH TRAY, NO S/S OF ACUTE DISTRESS NOTED AT THIS TIME, WILL CONTINUE TO MONITOR. 1330: RN RETURNED FROM BREAK, GOT PT BACK TO BED FROM [facility]. PT BM AND VOIDED AT THIS TIME. NO S/S OF ACUTE DISTRESS NOTED AT THIS TIME, WILL CONTINUE TO MONITOR. 1430: PT RESTING IN ROOM, REMAINS SET TO MONITOR, RR EVEN & UNLABORED, A&OX3, GCS 15, NO S/S OF ACUTE DISTRESS NOTED AT THIS TIME, WILL CONTINUE TO MONITOR. 1530: PT RESTING IN ROOM, NO S/S OF ACUTE DISTRESS NOTED AT THIS TIME, WILL CONTINUE TO MONITOR.
--- NOTE | 2021-03-09 16:54 | NUR ---
REPORT GIVEN TO ETHEL Styles. PT GOING TO ROOM 2233.
--- NOTE | 2021-03-09 16:56 | NUR ---
PT DAUGHTER SHILPA MUÑOZ [phone]
[2021-03-09] MEDS ORDERED: LASIX40 MG PO (17:21)
[2021-03-09] MEDS ORDERED: VITAMIN D325 MC1 PO (17:21)
--- NOTE | 2021-03-09 17:53 | NUR ---
ALERT AND ORIENTED X4 WITH PRESBUCUSIS NOTED. LUNGS DIMINISHED TO BLQ POSTERIOR WITH O2 2L N/C. STATED WAS ON HOME O2 DUE TO COPD. NADINE AND HAND GRASAP EQUAL. FALL PRECAUTIONS IN PLACE. ENCOURAGED TO USE CALL LIGHT FOR ASSSIT.
[2021-03-10 00:16] VITALS: BP 100/70
[2021-03-10 04:25] VITALS: BP 136/54
[2021-03-10 06:39] LABS: BASOPHILS 2.2 % (0-2); EOSINOPHILS 6.5 % (0-7); HEMATOCRIT 32.5 % (36.0-48.0); LYMPHOCYTES 25.3 % (15-50); MCH 29.4 pg (26.0-34.0); MCHC 33.8 g/dL (31.0-37.0); MCV 87.2 fL (80.0-100.0); MEAN PLATELET VOLUME 8.6 fL (7.4-10.4); MONOCYTES 12.8 % (2-11); NEUTROPHILS 53.2 % (40-80); PLATELET COUNT 179 10x3/uL (130-400); RBC 3.72 10x6/uL (4.00-5.40); RDW 13.5 % (11.5-14.5)
[2021-03-10 06:47] LABS: CALCIUM 8.1 mg/dL (8.5-10.1); CARBON DIOXIDE 29.3 mmol/L (21.0-32.0); CREATININE - SERUM 1.8 mg/dL (0.6-1.3)
[2021-03-10 06:49] LABS: WBC 5.2 10x3/uL (4.8-10.8)
[2021-03-10 07:07] LABS: ANION GAP 9.7 mmol/L (8-16)
--- NOTE | 2021-03-10 07:52 | NUR ---
I have reviewed this patient and I concur with the Shift Assessment completed by the Licensed Practical Nurse today this shift.
[2021-03-10 08:20] VITALS: BP 112/55
--- NOTE | 2021-03-10 10:25 | NUR ---
ASSESSMENT PER FLOW SHEET. PATIENT IS WITHOUT DISTRESS. FALL PREVENTION WITH BED ALARM.DOOR OPEN
--- NOTE | 2021-03-10 12:52 | NUR ---
ASSIST TO THE BATHROOM AND BACK TO BED. CALL FROM FAMILY. PASSWORD CONFIRMED,UPDATE GIVEN.
[2021-03-10] MEDS ORDERED: PLAVIX75 MG PO (13:16)
[2021-03-10 13:22] VITALS: BP 119/56
--- NOTE | 2021-03-10 15:48 | NUR ---
CALL TO DAUGHTER SHILPA [phone]. SHILPA INFORMED OF PATIENT DISCHARGE THIS AFTERNOON. THEY WILL COME PICK PATIENT UP FOR TRANSPORT HOME
--- NOTE | 2021-03-10 17:20 | NUR ---
DISCHARGE INSTRUCTIONS WITH PATIENT AND FAMILY. STATES UNDERSTANDING. IV DCD WITH CATH TIP INTACT.
--- NOTE | 2021-03-10 17:22 | NUR ---
LEFT UNIT VIA WHEELCHAIR FOR TRANSPORT HOME
--- NOTE | 2021-03-11 09:29 | MORECARE ---
CASE MANAGEMENT DISCHARGE SUMMARY PATIENT: FIDE TORRES UNIT: [id number] ADM DATE: 03/09/21 AGE: 89 : 32 SEX: F ROOM/BED: D.2239 AUTHOR: JOSUÉ,DOC PHYSICIAN: REFERRING PHYSICIAN: EVA VIDES MD DATE OF SERVICE: 03/11/21 Case Management Discharge Planning Summary COMMENTS ENTERED DATE: 03/11/21 9:25 CT COMMENT TYPE: Discharge Planning REVIEWER: Gary Dhillon CM met with patient to complete DC plan and to evaluate needs. Patient lives independently with family. Patient stated that her person to notify is her granddaughter, Asmita Zuñiga, . Patient stated that her home is safe and has electricity and running water. Patient stated that she uses a cane at times but is able to enter her home and move about her home without difficulty however, she would like a walker. Patient stated that she has no problems paying for medications and she fills her medications at [facility]. Patient stated that her primary care physician is Dr. Vides. At discharge, the patient plans to return home and feels this is a safe discharge. CM discussed availability of home health, rehab services, and medical equipment. Patient declined HHS, SNF, and IPR, but would like a cane through [facility]. KITA signed for [employer] and declination of Home [employer] and placed in chart. Patient stated that she has a cane and home oxygen through [facility]. Patient voiced no other needs at this time and is satisfied with DC plan. Transportation provider at discharge will be with her son-in-law Rell Nguyen. DC IMM delivered, explained, signed by the patient, and placed in chart. Signed form also left with the patient. CM will continue to follow and will assist as needed with dc plans/needs DCP REVIEW SUMMARY ANTICIPATED D/C DATE: 03/10/2021 EXPECTED LOS : 1 CASE STATUS: DCP Initiated INITIAL REVIEW: 03/08/2021 INITIAL REVIEWER: Gary Dhillon FINAL DISCHARGE DISPOSITION: : FINAL REVIEWER: FINAL REVIEW DATE: DCP Focus Questions & Answers DCP Evaluation QUESTION: ANSWER Patient and/or caregiver agree upon recommended discharge plan? : Yes Family / Caregiver's ability to cope with chronic illness: : a. Adequate (ability to meet patient's medical needs, ensures patient attends medical appts.) Patient's current cognitive status: : *Oriented to person, place, situation, time and present Patient's ability to cope with chronic illness : d. No chronic illness Patient gives permission to discuss discharge plans with: (name, relationship and number) : Asmita hook, Does the patient have the ability to pay for or attain post discharge needs / services? : Yes Functional screen assessment: : Basic needs can adequately be met by self Family / Caregiver's ability to cope with chronic illness: : a. Adequate (ability to meet patient's medical needs, ensures patient attends medical appts.) Physical Status: : Independent with ADL's Equipment needed for post hospitalization: : Walker - Rolling Is there a likelihood that the patient will require additional services to return to the preadmission environment? : Yes Living Arrangements: : Home with Extended Family Patient with capacity for self-care or can be cared for in same environment as prior to hospitalization? : Yes Baseline cognitive status: : *Oriented to person, place, situation, time and present Physical environment modification needed / anticipated for discharge: : No Medication Management: : Patient states can read and understand medication labels Medication Management: : Patient states can afford medications Pharmacy name(s): : Dr. Vides Does Patient have transportation to get home and to follow-up medical appointments when discharged from the hospital? : Yes Would patient like to participate in any Care Coordination programs (if applicable): : Not applicable Does the patient have electricity at home? : Yes Does the patient have running water in their house? : Yes Equipment in use: : Home Oxygen with Nasal Cannula Equipment agency name and contact information: : [facility] screen: : No mental health history DCP Re-evaluation QUESTION: ANSWER Would patient like to participate in any Care Coordination programs (if applicable): : Not applicable PATIENT: FIDE TORRES ENCOUNTER: [id number] MEDICAL RECORD#: [id number] ADMISSION DATE: 03/09/2021 DISCHARGE DATE: 03/10/2021 ATTENDING MD: EVA STOLL : 1931 AGE: 89 MARITAL STATUS: W DC PLAN ID: [id number] FACILITY: [facility] PRINTED ON: 03/11/21 9:28 CT All edits/amendments must be made on the electronic document DICTATION DATE: 03/11/21927 CONCRETE TECHNICIAN: ANGELIC 03/11/21927 RPT#: [id number] DC DATE:03/10/21 STATUS: DIS IN [facility] [address] [place] [address] END OF REPORT
--- NOTE | 2021-03-12 08:50 | MORECARE ---
CASE MANAGEMENT DISCHARGE SUMMARY PATIENT: FIDE TORRES UNIT: [id number] ADM DATE: 03/09/21 AGE: 89 : 32 SEX: F ROOM/BED: D.2239 AUTHOR: CARLOS MOSES PHYSICIAN: REFERRING PHYSICIAN: EVA VIDES MD DATE OF SERVICE: 03/12/21 Case Management Discharge Planning Summary COMMENTS ENTERED DATE: 03/11/21 9:25 CT COMMENT TYPE: Discharge Planning REVIEWER: Gary Dhillon CM met with patient to complete DC plan and to evaluate needs. Patient lives independently with family. Patient stated that her person to notify is her granddaughter, Asmita Zuñiga, . Patient stated that her home is safe and has electricity and running water. Patient stated that she uses a cane at times but is able to enter her home and move about her home without difficulty however, she would like a walker. Patient stated that she has no problems paying for medications and she [facility] her [facility]. Patient stated that her primary care physician is Dr. Vides. At discharge, the patient plans to return home and feels this is a safe discharge. CM discussed availability of home health, rehab services, and medical equipment. Patient declined HHS, SNF, and IPR, but would like a cane through [employer]. KITA signed for [facility] [employer] and declination of Home Heat[facility] and placed in chart. Patient stated that she has a cane and home oxygen through [facility]. Patient voiced no other needs at this time and is satisfied with DC plan. Transportation provider at discharge will be with her son-in-law Rell Nguyen. DC IMM delivered, explained, signed by the patient, and placed in chart. Signed form also left with the patient. CM will continue to follow and will assist as needed with dc plans/needs DCP REVIEW SUMMARY ANTICIPATED D/C DATE: 03/10/2021 EXPECTED LOS : 1 CASE STATUS: DCP Initiated INITIAL REVIEW: 03/08/2021 INITIAL REVIEWER: Gary Dhillon FINAL DISCHARGE DISPOSITION: : FINAL REVIEWER: FINAL REVIEW DATE: DCP Focus Questions & Answers DCP Evaluation QUESTION: ANSWER Patient gives permission to discuss discharge plans with: (name, relationship and number) : granddaughterAsmita, Patient's ability to cope with chronic illness : d. No chronic illness Patient's current cognitive status: : *Oriented to person, place, situation, time and present Family / Caregiver's ability to cope with chronic illness: : a. Adequate (ability to meet patient's medical needs, ensures patient attends medical appts.) Patient and/or caregiver agree upon recommended discharge plan? : Yes Physical Status: : Independent with ADL's Family / Caregiver's ability to cope with chronic illness: : a. Adequate (ability to meet patient's medical needs, ensures patient attends medical appts.) Functional screen assessment: : Basic needs can adequately be met by self Does the patient have the ability to pay for or attain post discharge needs / services? : Yes Living Arrangements: : Home with Extended Family Is there a likelihood that the patient will require additional services to return to the preadmission environment? : Yes Equipment needed for post hospitalization: : Walker - Rolling Baseline cognitive status: : *Oriented to person, place, situation, time and present Patient with capacity for self-care or can be cared for in same environment as prior to hospitalization? : Yes Physical environment modification needed / anticipated for discharge: : No Medication Management: : Patient states can afford medications Medication Management: : Patient states can read and understand medication labels Pharmacy name(s): : Dr. Vides Does Patient have transportation to get home and to follow-up medical appointments when discharged from the hospital? : Yes Would patient like to participate in any Care Coordination programs (if applicable): : Not applicable Does the patient have electricity at home? : Yes Does the patient have running water in their house? : Yes Equipment in use: : Home Oxygen with Nasal Cannula Equipment agency name and contact information: : [facility] screen: : No mental health history DCP Re-evaluation QUESTION: ANSWER Would patient like to participate in any Care Coordination programs (if applicable): : Not applicable PATIENT: FIDE TORRES ENCOUNTER: [id number] MEDICAL RECORD#: [id number] ADMISSION DATE: 03/09/2021 DISCHARGE DATE: 03/10/2021 ATTENDING MD: EVA STOLL : [id number] AGE: 89 MARITAL STATUS: W DC PLAN ID: [id number] FACILITY: [facility] PRINTED ON: 03/12/21 8:50 CT All edits/amendments must be made on the electronic document DICTATION DATE: 03/12/2150 MEMORANDUM STATEMENT CLERK: ANGELIC 03/12/2150 RPT#: [id number] DC DATE:03/10/21 STATUS: DIS IN [facility] [address] [place] [address] END OF REPORT
== END 2021-03-10 17:23 | disposition home or self-care (01) | DRG 69 ==
LOC: D.ER 13:35 → OBSVTIME 18:17 → D.EDHOLD 18:17 → D.MS 03-09 16:32
PROVIDERS: Family Medicine; ADMIT Family Medicine; ATTEND Family Medicine
DX: G45.9 Transient cerebral ischemic attack, unspecified (principal); I50.32 Chronic diastolic (congestive) heart failure; I65.29 Occlusion and stenosis of unspecified carotid artery; I11.0 Hypertensive heart disease with heart failure; J44.9 Chronic obstructive pulmonary disease, unspecified; N26.1 Atrophy of kidney (terminal)